=== PATIENT | male | born 1970 | race African-American/Black ===

== ENCOUNTER 2021-05-19 21:09 | Emergency (ER) | payer MEDICAID ==
[~2021-05-19] VITALS: Ht 175.3 cm; Wt 108.9 kg
[2021-05-19 21:14] VITALS: BP 142/103
[2021-05-19 22:53] LABS: Basophils # (auto) 0 10 ^3/uL (0-0.2); Basophils % (auto) 0.4 % (0.0-2.0); Eosinophils # (auto) 0.2 10 ^3/uL (0-0.8); Eosinophils % (auto) 1.3 % (0.0-7.0); Hematocrit 48.4 % (41.0-53.0); Hemoglobin 15.8 g/dL (13.5-17.5); Lymphocytes % (auto) 25.1 % (10.0-50.0); Mean Corpuscular Hgb Conc. 32.5 g/dL (32.0-36.0); Mean Corpuscular Volume 86.2 fL (80.0-100.0); Monocytes # (auto) 0.8 10 ^3/uL (0-1.3); Monocytes % (auto) 6.9 % (0.0-12.0); Neutrophils # (auto) 7.8 10 ^3/uL (1.6-8.6); Neutrophils % (auto) 66.3 % (37.0-80.0); Nucleated Red Blood Cells % 0.1 %; Red Blood Cells 5.62 10^6/uL (4.5-5.90); Red Cell Distribution Width 13.8 % (11.8-14.3); White Blood Cell 11.8 10^3/uL (4.4-10.8)
[2021-05-19 23:09] LABS: Albumin 3.9 g/dL (3.4-5.0); Calcium 9.8 mg/dL (8.5-10.1); Potassium 4.1 mmol/L (3.5-5.1)
[2021-05-19 23:12] LABS: BUN/Creatinine Ratio 8.2; Bilirubin, Total 0.5 mg/dL (0.2-1.0); Total Protein 8.2 g/dL (6.4-8.2)
== END 2021-05-20 02:00 | disposition home or self-care (01) ==
LOC: ER 21:09
DX: K59.00 Constipation, unspecified (principal)
CPT/HCPCS: 36415; 74176; 80053; 83690; 85025

== ENCOUNTER 2023-02-27 03:52 | Inpatient (IN) | payer MEDICAID ==
[~2023-02-27] VITALS: Ht 175.3 cm; Wt 106.4 kg
[2023-02-27 04:47] LABS: Basophils # (auto) 0.1 10 ^3/uL (0-0.2); Basophils % (auto) 0.5 % (0.0-2.0); Eosinophils # (auto) 0.1 10 ^3/uL (0-0.8); Eosinophils % (auto) 1.1 % (0.0-7.0); Hematocrit 44.8 % (41.0-53.0); Hemoglobin 14.8 g/dL (13.5-17.5); Lymphocytes # (auto) 2.7 10 ^3/uL (0.4-5.4); Lymphocytes % (auto) 24.2 % (10.0-50.0); Mean Corpuscular Hemoglobin 28.1 pg (28.0-32.0); Mean Corpuscular Hgb Conc. 32.9 g/dL (32.0-36.0); Mean Corpuscular Volume 85.4 fL (80.0-100.0); Monocytes # (auto) 0.8 10 ^3/uL (0-1.3); Neutrophils # (auto) 7.5 10 ^3/uL (1.6-8.6); Neutrophils % (auto) 67.2 % (37.0-80.0); Nucleated Red Blood Cells % 0.1 %; Red Blood Cells 5.25 10^6/uL (4.5-5.90); Red Cell Distribution Width 13.7 % (11.8-14.3); White Blood Cell 11.1 10^3/uL (4.4-10.8)
[2023-02-27 05:28] LABS: Albumin 3.8 g/dL (3.4-5.0); Calcium 9.5 mg/dL (8.5-10.1); Potassium 3.9 mmol/L (3.5-5.1)
[2023-02-27 05:37] LABS: BUN/Creatinine Ratio 7.2 (10.0-20.0)
[2023-02-27 05:38] LABS: Bilirubin, Total 0.2 mg/dL (0.2-1.0); Total Protein 7.3 g/dL (6.4-8.2)
[2023-02-27] MEDS ORDERED: SODIUM CHLORIDE 0.9% 1,000 ML IV ONE ×2 (06:00→10:30)
[2023-02-27] MEDS ORDERED: hydrALAZINE HCL 20 MG/ML VL IV PRN (10:30)
[2023-02-27] MEDS ORDERED: ACETAMINOPHEN 325 MG TAB PO PRN (10:30)
[2023-02-27] MEDS ORDERED: KETOROLAC TROMETH 30 MG/ML 1ML VIAL IV PRN (10:30)
[2023-02-27] MEDS ORDERED: KETOROLAC TROMETH 30 MG/ML 1ML VIAL IV ONE (10:30)
[2023-02-27] MEDS ORDERED: ONDANSETRON HCL 4 MG/2 ML VIAL IV PRN (10:30)
[2023-02-27] MEDS ORDERED: MORPHINE SULFATE INJ 2 MG/ml SYRG IV PRN (10:30)
[2023-02-27] MEDS ORDERED: HYDROcodone-ACET 5/325MG TAB PO PRN (10:30)
[2023-02-27] MEDS ORDERED: levoFLOXacin 250MG 50 ML IV ONE (10:45)
[2023-02-27] MEDS ORDERED: PANTOPRAZOLE 40 MG/10 ML VIAL INJ IV ONE (10:45)
[2023-02-27] MEDS ORDERED: metroNIDAZOLE 500MG/100ML 100 ML IV ONE (10:45)
[2023-02-27 11:47] LABS: Cholesterol 137 mg/dL (< 200); HDL Cholesterol 40 mg/dL (40-59); LDL Cholesterol 81 mg/dL (< 100); Triglycerides 150 mg/dL (< 150)
[2023-02-27] MEDS: SODIUM CHLORIDE 0.9% 1,000 ML IV SCH ×2 (13:04→14:57)
[2023-02-27] MEDS: metroNIDAZOLE 500MG/100ML 100 ML IV SCH (22:44)
[2023-02-28] VITALS (8 sets, daily range): BP systolic 135–146; BP diastolic 68–96
[2023-02-28] MEDS: SODIUM CHLORIDE 0.9% 1,000 ML IV SCH ×4 (03:10→20:50)
[2023-02-28] MEDS: metroNIDAZOLE 500MG/100ML 100 ML IV SCH (06:00)
[2023-02-28 06:48] LABS: Albumin 3.1 g/dL (3.4-5.0); Calcium 8.3 mg/dL (8.5-10.1); Potassium 4.1 mmol/L (3.5-5.1)
[2023-02-28 06:53] LABS: BUN/Creatinine Ratio 5.5 (10.0-20.0); Bilirubin, Total 0.5 mg/dL (0.2-1.0); Total Protein 6.3 g/dL (6.4-8.2)
[2023-02-28 06:54] LABS: Basophils # (auto) 0 10 ^3/uL (0-0.2); Basophils % (auto) 0.3 % (0.0-2.0); Eosinophils # (auto) 0.1 10 ^3/uL (0-0.8); Eosinophils % (auto) 1.6 % (0.0-7.0); Hematocrit 40.2 % (41.0-53.0); Hemoglobin 13.3 g/dL (13.5-17.5); Lymphocytes # (auto) 2.6 10 ^3/uL (0.4-5.4); Lymphocytes % (auto) 29.9 % (10.0-50.0); Mean Corpuscular Hemoglobin 28.1 pg (28.0-32.0); Mean Corpuscular Hgb Conc. 33.1 g/dL (32.0-36.0); Monocytes # (auto) 0.5 10 ^3/uL (0-1.3); Monocytes % (auto) 5.9 % (0.0-12.0); Neutrophils # (auto) 5.4 10 ^3/uL (1.6-8.6); Neutrophils % (auto) 62.3 % (37.0-80.0); Nucleated Red Blood Cells % 0.1 %; Red Blood Cells 4.73 10^6/uL (4.5-5.90); Red Cell Distribution Width 13.5 % (11.8-14.3); White Blood Cell 8.6 10^3/uL (4.4-10.8)
[2023-02-28] MEDS ORDERED: levoFLOXacin 500MG 100 ML IV SCH (10:00)
[2023-02-28] MEDS ORDERED: PANTOPRAZOLE 40 MG/10 ML VIAL INJ IV SCH (10:00)
[2023-02-28 13:35] LABS: Albumin 3.5 g/dL (3.4-5.0); Calcium 8.5 mg/dL (8.5-10.1); Potassium 4.5 mmol/L (3.5-5.1)
[2023-02-28 13:39] LABS: BUN/Creatinine Ratio 5.2 (10.0-20.0); Bilirubin, Total 0.4 mg/dL (0.2-1.0); Total Protein 6.5 g/dL (6.4-8.2)
[2023-03-01] MEDS: SODIUM CHLORIDE 0.9% 1,000 ML IV SCH (04:10)
[2023-03-01 05:00] VITALS: BP 121/90
[2023-03-01 06:08] LABS: Albumin 3.3 g/dL (3.4-5.0); Calcium 8.7 mg/dL (8.5-10.1); Magnesium 2.7 mg/dL (1.6-2.6); Potassium 4.2 mmol/L (3.5-5.1)
[2023-03-01 06:10] LABS: Bilirubin, Total 0.4 mg/dL (0.2-1.0); Total Protein 6.9 g/dL (6.4-8.2)
[2023-03-01 09:00] VITALS: BP 137/90
[2023-03-01 12:42] VITALS: BP 137/90
== END 2023-03-01 14:00 | disposition home or self-care (01) | DRG 282 ==
LOC: ER 03:52 → OVERFLOW 10:22 → WEST WING 23:27
PROVIDERS: ADMIT Nurse Practitioner Family; ATTEND Internal Medicine Geriatric Medicine
DX: K85.20 Alcohol induced acute pancreatitis without necrosis or infection (principal); E44.1 Mild protein-calorie malnutrition; E66.01 Morbid (severe) obesity due to excess calories; Z68.34 Body mass index [BMI] 34.0-34.9, adult; Z88.0 Allergy status to penicillin
CPT/HCPCS: 36415; 71045; 74176; 80053; 80061; 83036; 83690; 83735; 84443; 84484; 85025; 93005; 96361; 96374; 96375; C9113; G0378; J1885; J1956; J2405; J3490

== ENCOUNTER 2025-07-15 17:17 | Inpatient (IN) | payer MEDICAID ==
[~2025-07-15] VITALS: Ht 175.3 cm; Wt 109.5 kg
--- NOTE | 2025-07-15 17:49 | ED.PDOC ---
History of Present Illness HPI Comments Mr. Medina is a 54 year old male with PMHx of CVA in October with sequela of left sided weakness(patient is on anticoagulants but is unsure of which one), brain aneurysms s/p failed endovascular coiling, type 2 diabetes mellitus, hypertension, and hyperlipidemia,, who presents today with chief complaint of headache and generalized body aches. The patient states that he habitually has headaches, however in the last 3-4 days he these have increased in intensity. He describes his headaches as generalized, throbbing in nature, 10/10 intensity, associated with photophobia and phonophobia, improves slightly with appointment in bilateral temporal pressure and resting in a dark room. Additionally refers fatigue, febrile sensation, nasal congestion and discharge, nausea, bilateral jaw pain, and a transitory period of decreased vision in the left eye with spontaneous resolution. The patient also reports that he ran out of blood pressure medication 2-3 days ago. He denies chest pain, abdominal pain, vomiting, weakness, loss of consciousness, disorientation, and exposure to sick contacts. Due to persistence of symptoms, he presented to the ED for further evaluation. Chief Complaint: Headache Time Seen by MD: 18:20 Primary Care Provider: NONE Allergies: Coded Allergies: Penicillins (Verified Allergy, Unknown, 02/27/23) Home Meds No Active Prescriptions or Reported Meds Information Source: Patient Mode of Arrival: Ambulatory Severity: Moderate Timing: Days Duration: Since onset Past Medical History PAST MEDICAL HISTORY: CVA, DM, High Lipids, HTN, Denies Past Medical History (Other): Brain aneurysms Surgical History: Denies all surgeries Surgical History (Other): Failed endovascular coiling Family History Family History: Reviewed,noncontributory to illness Social History Smoker: Quit Greater Than 1 Year Alcohol: Denies ETOH Use Drugs: Denies Drug Use Lives In: Home Constitutional: reports: fatigue EENTM: reports: blurred vision (In left eye that spontaneous resolved ), mouth pain, nasal discharge, nose congestion, photophobia, others (Jaw pain, phonophobia ); denies: double vision, eye pain, throat pain Respiratory: denies: cough, orthopnea, shortness of breath Cardiovascular: denies: chest pain, dizzy spells, lightheadedness, palpitations, syncope Gastrointestinal: reports: nausea; denies: abdominal pain, constipated, dysphagia, poor appetite, poor fluid intake, vomiting Genitourinary: denies: burning, dysuria, flank pain, frequency, hematuria, incontinence, pain Neurological: reports: headache, left sided numbness (From previous stroke ), left sided weakness (From previous storke ), pre-existing deficit (From previous stroke ); denies: dizziness, fainting, numbness, paresthesia, right sided numbness, right sided weakness, seizure, tingling, tremors, weakness Musculoskeletal: reports: joint pain, neck pain; denies: back pain, joint swelling, muscle pain, muscle stiffness, others Integumetry: denies: laceration, lesions, rash, wounds Physical Exam General Appearance: Normal, Obese HEENT: Normal ENT Inspection, PERRL/EOMI, Pharynx Normal Neck: Full Range of Motion, Non-Tender, Normal Inspection Respiratory: Chest Non-Tender, No Accessory Muscle Use, No Respiratory Distress, Normal Breath Sounds Cardiovascular: No Edema, No Murmur, Normal Peripheral Pulses, Regular Rate/Rhythm Breast Exam: Deferred Gastrointestinal: No Organomegaly, Non Tender, Normal Bowel Sounds, Soft Pelvic: Deferred Rectal: Deferred Extremities: Normal capillary refill, Normal inspection, Normal range of motion, Non-tender, No pedal edema Neurologic: Abnormal Gait (Due to previous stroke ), Alert, Motor Weakness (3/5 strength of left hand, 2/5 strength of left leg), Normal Affect, Normal Mood Cerebellar Function: NOT DONE Reflexes: NOT DONE Skin: Normal Color Lymphatic: Cervical Adenopathy (L) (No cervical adenopathy), Cervical Adenopathy (R) (No cervical adenopathy) Was a procedure done? Was a procedure done?: No EKG EKG : Pulse Rate (adult): 77 [place]: LAD ST: Nonsp Differential Dx Considerations may include: Complex migraines, CVA, aneurysmal rupture, Hypertensive Urgency, Hypertensive Emergency, Giant Cell Arteritis, Viral Syndrome X-Ray, Labs, Meds, VS Vital Signs Date Time Temp Pulse Resp B/P (MAP) Pulse Ox O2 Delivery O2 Flow Rate FiO2 07/15/25 21:53 97.4 81 18 115/72 (86) 96 97.4 07/15/25 21:33 83 16 128/79 (95) 96 07/15/25 19:37 84 120/84 07/15/25 19:32 84 18 97 Room Air* 0 21 07/15/25 19:30 98.3 84 18 120/84 (96) 95 98.3 07/15/25 19:26 77 07/15/25 17:35 77 07/15/25 17:20 97.0 86 18 147/103 98 97.0 Lab Test 07/15/25 20:04 07/15/25 19:45 07/15/25 19:00 07/15/25 17:53 Range/Units POC Glucose 285 H 70-106 mg/dl Urine Color Light-yellow Yellow Urine Clarity Clear Clear Urine pH 5.5 5.0-9.0 Urine Specific [place] 1.038 H 1.001-1.035 Urine Protein Trace H Negative Urine Ketones Negative Negative Urine Blood Trace H Negative /uL Urine Nitrite Negative Negative Urine Bilirubin Negative Negative Urine Urobilinogen Normal Negative mg/dL Urine Leukocyte Esterase Negative Negative /uL Urine RBC 3 0 - 3 /hpf Urine Microscopic WBC < 1 0-3 /HPF Urine Squamous Epithelial Cells Few <5 /hpf Urine Bacteria None seen None Seen /hpf Urine Mucus Few None Seen Urine Glucose 4+ H Normal mg/dL Troponin I High Sensitivity < 3 L < 3 L </=54 ng/L White Blood Count 8.9 4.4-10.8 10^3/uL Red Blood Count 5.31 4.5-5.90 10^6/uL Hemoglobin 14.6 13.5-17.5 g/dL Hematocrit 44.6 41.0-53.0 % Mean Corpuscular Volume 83.9 80.0-100.0 fL Mean Corpuscular Hemoglobin 27.4 L 28.0-32.0 pg Mean Corpuscular Hemoglobin Concent 32.7 32.0-36.0 g/dL Red Cell Distribution Width 13.7 11.8-14.3 % Platelet Count 245 140-450 10^3/uL Mean Platelet Volume 7.4 6.9-10.8 fL Neutrophils (%) (Auto) 59.2 37.0-80.0 % Lymphocytes (%) (Auto) 31.0 10.0-50.0 % Monocytes (%) (Auto) 6.2 0.0-12.0 % Eosinophils (%) (Auto) 2.8 0.0-7.0 % Basophils (%) (Auto) 0.8 0.0-2.0 % Neutrophils # (Auto) 5.3 1.6-8.6 10 ^3/uL Lymphocytes # (Auto) 2.7 0.4-5.4 10 ^3/uL Monocytes # (Auto) 0.6 0-1.3 10 ^3/uL Eosinophils # (Auto) 0.2 0-0.8 10 ^3/uL Basophils # (Auto) 0.1 0-0.2 10 ^3/uL Nucleated Red Blood Cells 0.0 % Erythrocyte Sedimentation Rate 12 0-20 mm/hr Prothrombin Time 9.8 9.3-11.8 sec Prothrombin Time INR 0.92 0.9-1.15 Activated Partial Thromboplast Time 25.8 24.5-34.5 SEC Sodium Level 137 136-145 mmol/L Potassium Level 4.0 3.5-5.1 mmol/L Chloride Level 102 98-107 mmol/L Carbon Dioxide Level 28 20-31 mmol/L Anion Gap 7 5-15 Blood Urea Nitrogen 7 L 9-23 mg/dL Creatinine 1.31 H 0.700-1.30 mg/dL Glomerular Filtration Rate Calc 65 >90 mL/min BUN/Creatinine Ratio 5.3 L 10.0-20.0 Serum Glucose 343 H 74-106 mg/dL Lactic Acid Level 1.5 0.4-2.0 mmol/L Calcium Level 10.2 8.7-10.4 mg/dL Magnesium Level 2.1 1.6-2.6 mg/dL Total Bilirubin 0.5 0.2-1.0 mg/dL Aspartate Amino Transferase (AST) 12 L 13-40 U/L Alanine Aminotransferase (ALT) 18 7-40 U/L Alkaline Phosphatase 126 H 46-116 U/L B-Type Natriuretic Peptide 11.23 0-100 pg/mL Total Protein 8.0 5.7-8.2 g/dL Albumin 4.8 3.2-4.8 g/dL Beta-Hydroxybutyric Acid 0.102 < 0.4 mmol/L Test 07/15/25 17:45 Range/Units Influenza Type A Antigen Negative Negative Influenza Type B Antigen Negative Negative SARS-CoV-2 Antigen (Rapid) Negative NEGATIVE Current Medications Medications (Trade) Dose Ordered Sig/Ruy Route Start Time Stop Time Status Last Admin Acetaminophen/ Hydrocodone Bitart ([place] 5/325MG Tab) 1 tab ONCE ONCE PO 07/15/25 18:45 07/15/25 19:55 DC 07/15/25 21:[address] [address] Ph: [phone] DIAGNOSTIC IMAGING Diagnostic Imaging Report : [id number] Signed PATIENT: PHYLICIA MEDINA V ACCT: [id number] UNIT: [id number] : 1970 LOC: ER ROOM / BED: / AGE / SEX: 54 / M ADM STATUS: REG ER SERVICE 182 ORDERING PHYSICIAN: LA RIDDLE DO PROCEDURE(s): [place] - ANGIO HEAD/Neck REASON: WILK[place], h/o aneurysm ORDER NUMBER(s): [id number], ACCESSION NUMBER(s): [id number] INDICATION: WILKERSON, h/o aneurysm COMPARISON: CT HEAD WITHOUT CONTRAST on DOS: 07/15/25 TECHNIQUE: CTA head without and with intravenous contrast. CTA neck with intravenous contrast. 3D image postprocessing was performed on a dedicated workstation and images were used for interpretation and reporting. Radiation Dose Information: CT Dose: CTDI volume is 22.09 mGy. Dose-length product is 3.16 mGy*cm FINDINGS: The caliber and course of the distal internal carotid arteries is unremarkable. No evidence of high-grade stenosis or occlusion of the proximal branch vessels of the [place]. The basilar artery is patent. The intracranial segments of the bilateral vertebral arteries are unremarkable in caliber. There is a suspected 3 mm aneurysm of the left M1/M2 bifurcation. The visualized thoracic aortic arch and proximal great vessels are unremarkable. The left common, internal and external carotid arteries are within normal limits. The right common, internal and external carotid arteries are within normal limits. The cervical segments of the right and left vertebral arteries are within normal limits. The limited visualized lung apices are clear. The surrounding soft tissues and osseous structures are otherwise unremarkable. Pleural-parenchymal scarring and nonspecific opacities are seen at the lung apices. IMPRESSION: 1. Suspected 3 mm aneurysm of the left M1/M2 bifurcation. Comparison with prior imaging is suggested. 2. No large vessel occlusion. All CT scans at this medical facility are performed using dose modulation techniques as appropriate to a performed exam including the following: Automated exposure control was utilized; adjustment of the MA and/or KV according to patient size; and use of iterative reconstruction technique. ATED BY: SALMA FORBES MD DICTATED DATE/TIME: 07/15/252054 SIGNED BY: SALMA FORBES MD SIGNED DATE/TIME: 07/15/252054 CC: [place] [id number] Ph: [phone] DIAGNOSTIC IMAGING Diagnostic Imaging Report : [id number] Signed PATIENT: PHYLICIA MEDINA V ACCT: [id number] UNIT: [id number] : 1970 LOC: ER ROOM / BED: / AGE / SEX: 54 / M ADM STATUS: REG ER SERVICE 182 ORDERING PHYSICIAN: LA RIDDLE DO PROCEDURE(s): CXRP - CHEST PORTABLE REASON: flu like symptoms ORDER NUMBER(s): [id number], ACCESSION NUMBER(s): [id number] CLINICAL HISTORY: flu like symptoms TECHNIQUE: Single view of the chest was obtained. COMPARISON: XY CHEST PORTABLE on DOS: 02/27/23 FINDINGS: The heart size and pulmonary vasculature are normal. The lungs are clear. IMPRESSION: NO ACUTE CARDIOPULMONARY PROCESS. ATED BY: ORLANDO SOUZA MD DICTATED DATE/TIME: 07/15/252040 SIGNED BY: ORLANDO OSUZA MD SIGNED DATE/TIME: 07/15/252040 CC: [place] [id number] Ph: [phone] DIAGNOSTIC IMAGING Diagnostic Imaging Report : [id number] Signed PATIENT: PHYLICIA MEDINA V ACCT: [id number] UNIT: [id number] : 1970 LOC: ER ROOM / BED: / AGE / SEX: 54 / M ADM STATUS: REG ER SERVICE [id number] ORDERING PHYSICIAN: CONNIE YAO PROCEDURE(s): HWOCT - HEAD WITHOUT CONTRAST REASON: headache ORDER NUMBER(s): [id number], ACCESSION NUMBER(s): [id number] CLINICAL HISTORY: headache TECHNIQUE: Helical scanning was performed of the head from the skull base to the vertex. Multiplanar reconstructions were performed. This exam was performed according to our departmental dose optimization program. Up-to-date CT equipment and radiation dose reduction techniques are utilized as appropriate. CTDI 5 DLP 45 COMPARISON: None FINDINGS: There is no evidence for acute intracranial hemorrhage, acute ischemic changes, mass, mass effect, or extra-axial fluid collection. There is no hydrocephalus or midline shift. There is no effacement of the cerebral sulci and basal subarachnoid cisterns. The cadena-white matter differentiation is well maintained. There are old right putamen and caudate lacunar infarcts. The imaged paranasal sinuses are clear. IMPRESSION: No acute intracranial abnormality seen. Old right basal ganglia lacunar infarcts. ATED BY: ORLANDO SOUZA MD DICTATED DATE/TIME: 07/15/251819 SIGNED BY: ORLANDO SOUZA MD SIGNED DATE/TIME: 07/15/251819 CC: Time of 1ST Reevaluation: 19:00 Reevaluation 1ST: Unchanged Time of 2ND Reevaluation: 22:03 (The case was discussed with the neurology on- call team (HPI, physical exam, labs and diagnostic tests that were available at the time of disposition, ED course, treatment plan) on the phone. They agreed to follow up with the patient in consult. No further recommendations. Dr. Ha. ) Patient Education/Counseling: Diagnosis, Treatment Family Education/Counseling: No Family Present Comments The patient presented today due to exacerbation of headaches and generalized body aches for the last 3-4 days On evaluation, the patient seemed well, vitals were stable with exception of BP of 140/103 mmHg, physical exam positive for left-sided deficits secondary to CVA in October 2023 CBC and ESR within normal range, CMP signficant for elevated creatinine 1.31, hyperglycemia, and elevated ALP. Coagulation profile without alterations. EKG shows sinus rhtyhm, borderline left axis deviation, and nonspecific T abnormalities in inferior leads Head CT without contrast shows no acute abnormality, with old right basal ganglia infarct noted SEPSIS Sepsis Screen Date sepsis recognized/suspect: Jul 15, 2025 Time Sepsis recognized/suspect: 1719 Recent Procedure: No On Antibiotic Therapy: No Respiratory Rate >20: No Heart Rate >90: No Temp<36 C (96.8 F) or >38.3 C: No SBP <90 or MAP <65 mmHG: No New Acute Mental Status Change: No Is the patient on CPAP, BIPAP,: No Physician Orders Head Without Contrast (07/15/25 17:31) V Belt Finisher (07/15/25 ) Stroke Assessment (07/15/25 18:21) Vital Signs .PER UNIT PROTOCOL (07/15/25 18:21) V Belt Finisher (07/15/25 18:21) Accurate Weight In Kg (07/15/25 18:21) Accucheck (07/15/25 18:21) Angio Head/Neck (07/15/25 18:21) 2 Large Bore Ivs (20mg Or Larg (07/15/25 18:21) Nursing Dysphagia Screen (07/15/25 18:21) Neuro Checks Per Unit Protocol (07/15/25 18:21) Chest Portable (07/15/25 18:21) Labetalol Hcl (Labetalol Hcl) (07/15/25 18:30) * Neurology Consult (07/15/25 21:32) Vital Signs Date Time Temp Pulse Resp B/P (MAP) Pulse Ox O2 Delivery O2 Flow Rate FiO2 07/15/25 21:53 97.4 81 18 115/72 (86) 96 97.4 07/15/25 21:33 83 16 128/79 (95) 96 07/15/25 19:37 84 120/84 07/15/25 19:32 84 18 97 Room Air* 0 21 07/15/25 19:30 98.3 84 18 120/84 (96) 95 98.3 07/15/25 19:26 77 07/15/25 17:35 77 07/15/25 17:20 97.0 86 18 147/103 98 97.0 Laboratory Tests Test 07/15/25 17:53 Lactic Acid Level 1.5 mmol/L (0.4-2.0) White Blood Count 8.9 10^3/uL (4.4-10.8) Medications Medications Dose Ordered Sig/Ruy Route Start Time Stop Time Status Last Admin Dose Admin Acetaminophen/ Hydrocodone Bitart 1 tab ONCE ONCE PO 07/15/25 18:45 07/15/25 19:55 DC 07/15/25 21:31 Departure 1 Departure Time of Disposition: 21:31 Impression: Primary Impression: Headache Disposition: 09 ADMITTED INPATIENT Admit to: Tele Condition: Guarded e-Prescriptions No Active Prescriptions or Reported Meds Discharged With: Self Critical Care Note Critical Care Time?: No Stability Stability form required: No I personally scribed for VICTORIANO SARGENT RESIDENT ([email or web address]) on 07/15/25 at 21:07. Electronically submitted by Irvin Levin ([email or web address]). VICTORIANO SARGENT Jul 15, 2025 17:49 LA RIDDLE DO Jul 15, 2025 21:32
[2025-07-15 18:20] LABS: Hematocrit 44.6 % (41.0-53.0); Hemoglobin 14.6 g/dL (13.5-17.5); Mean Corpuscular Hemoglobin 27.4 pg (28.0-32.0); Mean Corpuscular Volume 83.9 fL (80.0-100.0); Nucleated Red Blood Cells % 0.0 %
--- NOTE | 2025-07-15 18:23 | DVH ---
CLINICAL HISTORY: headache TECHNIQUE: Helical scanning was performed of the head from the skull base to the vertex. Multiplanar reconstructions were performed. This exam was performed according to our departmental dose optimizat ion program. Up-to-date CT equipment and radiation dose reduction techniques are utilized as appropri ate. CTDI 5 DLP 45 COMPARISON: None FINDINGS: There is no evidence for acute intracranial hemorrhage, acute ischemic changes, mass, mass effect, or extra-axial fluid collection. There is no hydrocephalus or midline shift. There is no effacement of the cerebral sulci and basal subarachnoid cisterns. The cadena-white matter differentiation is well yue ntained. There are old right putamen and caudate lacunar infarcts. The imaged paranasal sinuses are clear. IMPRESSION: No acute intracranial abnormality seen. Old right basal ganglia lacunar infarcts.
[2025-07-15 18:35] LABS: Alanine Aminotransferase 18 U/L (7-40); Anion Gap 7 (5-15); BUN/Creatinine Ratio 5.3 (10.0-20.0); Calcium 10.2 mg/dL (8.7-10.4); Carbon Dioxide 28 mmol/L (20-31); Chloride 102 mmol/L (98-107); Magnesium 2.1 mg/dL (1.6-2.6); Potassium 4.0 mmol/L (3.5-5.1); Sodium 137 mmol/L (136-145); Total Protein 8.0 g/dL (5.7-8.2)
[2025-07-15 18:36] LABS: Albumin 4.8 g/dL (3.2-4.8); Alkaline Phosphatase 126 U/L (46-116); Bilirubin, Total 0.5 mg/dL (0.2-1.0); Blood Urea Nitrogen 7 mg/dL (9-23); Glucose 343 mg/dL (74-106)
--- NOTE | 2025-07-15 18:40 | ECG ---
[facility] Test Date: 2025-07-15 Test Time: 17:35:21 Pat Name: PHYLICIA DELEON Department: Room: 0251 Gender: M Hat Liner: WOOD : 1970 Requested By: LA RIDDLE Order Number: [id number] Reading MD: Missael Brown Measurements Intervals [place] Rate: 77 P: 44 MI: 169 QRS: -28 QRSD: 96 T: -22 QT: 337 QTc: 382 Interpretive Statements Sinus rhythm Borderline left axis deviation Nonspecific T abnormalities, inferior leads Baseline wander in lead(s) III,aVF Electronically Signed On 07-19-2025 14:52:30 PDT by Missael Brown Please click the below link to view image of tracing.
[2025-07-15 18:54] LABS: INR 0.92 (0.9-1.15); Partial Thromboplastin Time 25.8 SEC (24.5-34.5); Prothrombin Time 9.8 sec (9.3-11.8)
[2025-07-15 19:32] VITALS: PULSE 84; RESP 18; O2SAT 97
[2025-07-15] MEDS: LABETALOL HCL 20 MG/4 ML VL IV PRN (19:37)
[2025-07-15] MEDS: IOHEXOL 350 MG/ML 100ML IJ ONE (20:20)
[2025-07-15 20:41] LABS: COVID19 ANTIGEN SOFIA FIA NEGATIVE (NEGATIVE)
[2025-07-15 20:44] LABS: Urine Protein, UAD TRACE (Negative)
--- NOTE | 2025-07-15 20:44 | DVH ---
CLINICAL HISTORY: flu like symptoms TECHNIQUE: Single view of the chest was obtained. COMPARISON: XY CHEST PORTABLE on DOS: 02/27/23 FINDINGS: The heart size and pulmonary vasculature are normal. The lungs are clear. IMPRESSION: NO ACUTE CARDIOPULMONARY PROCESS.
--- NOTE | 2025-07-15 20:57 | DVH ---
INDICATION: WILKERSON, h/o aneurysm COMPARISON: CT HEAD WITHOUT CONTRAST on DOS: 07/15/25 TECHNIQUE: CTA head without and with intravenous contrast. CTA neck with intravenous contrast. 3D image postprocessing was performed on a dedicated workstation and images were used for interpretation and reporting. Radiation Dose Information: CT Dose: CTDI volume is 22.09 mGy. Dose-length product is 3.16 mGy*cm FINDINGS: The caliber and course of the distal internal carotid arteries is unremarkable. No evidence of high-g rade stenosis or occlusion of the proximal branch vessels of the [place] of [place]r. The basilar artery is patent. The intracranial segments of the bilateral vertebral arteries are unremarkable in caliber . There is a suspected 3 mm aneurysm of the left M1/M2 bifurcation. The visualized thoracic aortic arch and proximal great vessels are unremarkable. The left common, int ernal and external carotid arteries are within normal limits. The right common, internal and external carotid arteries are within normal limits. The cervical segments of the right and left vertebral art eries are within normal limits. The limited visualized lung apices are clear. The surrounding soft ti ssues and osseous structures are otherwise unremarkable. Pleural-parenchymal scarring and nonspecific opacities are seen at the lung apices. IMPRESSION: 1. Suspected 3 mm aneurysm of the left M1/M2 bifurcation. Comparison with prior imaging is suggested . 2. No large vessel occlusion. All CT scans at this medical facility are performed using dose modulation techniques as appropriate t o a performed exam including the following: Automated exposure control was utilized; adjustment of th e MA and/or KV according to patient size; and use of iterative reconstruction technique.
[2025-07-15] MEDS: HYDROcodone-ACET 5/325MG TAB PO ONE (21:31)
[2025-07-16] VITALS (8 sets, daily range): BP systolic 112–130; BP diastolic 61–89; PULSE 63–92; RESP 16–20; TEMP 97.6–98.5; O2SAT 94–98
[2025-07-16] MEDS ORDERED: ACETAMINOPHEN 325 MG TAB PO PRN (00:30)
[2025-07-16] MEDS ORDERED: DEXTROSE (50%) 50ML SYRG IV PRN (00:30)
[2025-07-16] MEDS ORDERED: ONDANSETRON HCL 4 MG/2 ML VIAL IV PRN (00:30)
--- NOTE | 2025-07-16 02:00 | DVHHPRES ---
History of Present Illness Resident Creating Document: DEIDRA MARTIN RESIDENT History of Present Illness This is a 54 year old male with PMHx of CVA (October) with sequela of left sided weakness(takes aspirin and an anticoagulants but is unsure of which one), brain aneurysms s/p failed endovascular coiling, type 2 diabetes mellitus on insulin, hypertension, hyperlipidemia, and pancreatitis, has come to the ER today with chief complaint of headache and generalized body aches. The patient states that he habitually has headaches, however in the last 3-4 days, it has increased in intensity. He describes his headaches as generalized , starting from the occipital region that radiates towards the front and down to his jaws, throbbing in nature, 10/10 intensity, associated with photophobia and phonophobia, improves slightly when he applies pressure in the temporal region and rests in a dark room. He also states that he has been fatigued, and has nasal congestion and discharge, nausea and a transitory period of decreased vision in the left eye on waking up with spontaneous resolution after 15 minutes. He states that this has been ongoing since his stroke event. The patient also reports that he ran out of blood pressure medication 2-3 days ago. He denies chest pain, abdominal pain, vomiting, weakness, loss of consciousness, disorientation, and exposure to sick contacts. Blood pressure on admission was 147/103, pulse 86, respiratory rate 18, temperature 97.0. Angio of the head and neck showed suspected 3 mm aneurysm of the left M1 / M2 bifurcation. CT scan of the head shows old right basilar ganglia lacunar infarct. We are admitting the patient for further evaluation and management. past medical history: As stated above past surgical history: None social history: Patient denies smoking, drinking alcohol, or taking any other illicit drugs family history: Reviewed and noncontributory to the management of this case home medication: Patient can not remember medications but knows he takes insulin for diabetes allergies: None code status: Full code Review of Systems Constitutional: Yes: Other (headache); No: Fever, Chills, Sweats, Weakness, Malaise Eyes: No: Pain, Vision change, Conjunctivae inflammation, Eyelid inflammation, Other, Redness ENT: Nose discharge, Nose congestion; No: Ear pain, Ear discharge, Nose pain, Mouth pain, Mouth swelling, Throat pain, Throat swelling, Other Respiratory: No: Cough, Dry, Shortness of breath, SOB with excertion, Wheezing, Hemoptysis, Pleuritic Pain, Sputum, Wheezing, Other Cardiovascular: No: Chest Pain, Palpitations, Orthopnea, Paroxysmal Noc. Dyspnea, Edema, Lt Headedness, Other Gastrointestinal: Nausea; No: Vomiting, Abdominal Pain, Diarrhea, Constipation, Melena, Hematochezia, Other Genitourinary: No Dysuria, No Frequency, No Incontinence, No Hematuria, No Retention, No Other Musculoskeletal: No: other, neck pain, shoulder pain, arm pain, back pain, hand pain, leg pain, foot pain Skin: No: Rash, Lesions, Jaundice, Bruising, Other Neurological: No: Weakness, Numbness, Incoordination, Change in speech, Confusion, Seizures, Other Allergies: Coded Allergies: Penicillins (Verified Allergy, Unknown, 02/27/23) Medications Current Medications Medications Dose Ordered Sig/Ruy Route Start Time Stop Time Status Last Admin Dose Admin Labetalol HCl 5 mg Q2HPRN PRN IV 07/15/25 18:30 Ondansetron HCl 4 mg Q4HP PRN IV 07/16/25 00:30 Acetaminophen 650 mg Q6HP PRN PO 07/16/25 00:30 Diagnostic Test (Pha) 1 strip ACHS 07/16/25 07:00 Insulin Human Regular AC SC 07/16/25 07:00 Dextrose 50 ml UD PRN IV 07/16/25 00:30 Insulin Glargine 15 units HS SC 07/16/25 22:00 Fluticasone Propionate 50 mcg Q12HR EACHNOSTRI 07/16/25 10:00 Amlodipine Besylate 5 mg DAILY PO 07/16/25 10:00 Aspirin 81 mg DAILY PO 07/17/25 10:00 Atorvastatin Calcium 40 mg HS PO 07/16/25 22:00 Exam Vital Signs Vital Signs Date Time Temp Pulse Resp B/P (MAP) Pulse Ox O2 Delivery O2 Flow Rate FiO2 07/16/25 00:49 97.6 67 16 124/86 (99) 98 97.6 07/15/25 19:32 Room Air* 0 21 Exam General Appearance: Alert, Oriented X3, Cooperative, Not in acute distress HEENT: Atraumatic, Mucous membranes moist/pink, tender on palpation of frontal nasal sinuses Respiratory: Clear to auscultation, Normal air movement, No added sounds Cardiovascular: Regular rate, Normal S1, Normal S2, No murmurs Abdominal: Active bowel sounds, Soft, no distention, no tenderness Extremities: No edema, Normal pulses, power 0/5 on the left lower and upper extremity-patient uses cane to ambulate Skin: No Significant rash, except past surgical scars Neuro: Normal speech, sensorimotor deficits none Psych/Mental Status: Mental status NL, Mood NL Nurse was there as forest fire control officer during examination Labs/Xrays Labs Test 07/15/25 20:04 07/15/25 19:45 07/15/25 19:00 07/15/25 17:53 Range/Units POC Glucose 285 H 70-106 mg/dl Urine Color Light-yellow Yellow Urine Clarity Clear Clear Urine pH 5.5 5.0-9.0 Urine Specific Blain 1.038 H 1.001-1.035 Urine Protein Trace H Negative Urine Ketones Negative Negative Urine Blood Trace H Negative /uL Urine Nitrite Negative Negative Urine Bilirubin Negative Negative Urine Urobilinogen Normal Negative mg/dL Urine Leukocyte Esterase Negative Negative /uL Urine RBC 3 0 - 3 /hpf Urine Microscopic WBC < 1 0-3 /HPF Urine Squamous Epithelial Cells Few <5 /hpf Urine Bacteria None seen None Seen /hpf Urine Mucus Few None Seen Urine Glucose 4+ H Normal mg/dL Troponin I High Sensitivity < 3 L </=54 ng/L White Blood Count 8.9 4.4-10.8 10^3/uL Red Blood Count 5.31 4.5-5.90 10^6/uL Hemoglobin 14.6 13.5-17.5 g/dL Hematocrit 44.6 41.0-53.0 % Mean Corpuscular Volume 83.9 80.0-100.0 fL Mean Corpuscular Hemoglobin 27.4 L 28.0-32.0 pg Mean Corpuscular Hemoglobin Concent 32.7 32.0-36.0 g/dL Red Cell Distribution Width 13.7 11.8-14.3 % Platelet Count 245 140-450 10^3/uL Mean Platelet Volume 7.4 6.9-10.8 fL Neutrophils (%) (Auto) 59.2 37.0-80.0 % Lymphocytes (%) (Auto) 31.0 10.0-50.0 % Monocytes (%) (Auto) 6.2 0.0-12.0 % Eosinophils (%) (Auto) 2.8 0.0-7.0 % Basophils (%) (Auto) 0.8 0.0-2.0 % Neutrophils # (Auto) 5.3 1.6-8.6 10 ^3/uL Lymphocytes # (Auto) 2.7 0.4-5.4 10 ^3/uL Monocytes # (Auto) 0.6 0-1.3 10 ^3/uL Eosinophils # (Auto) 0.2 0-0.8 10 ^3/uL Basophils # (Auto) 0.1 0-0.2 10 ^3/uL Nucleated Red Blood Cells 0.0 % Erythrocyte Sedimentation Rate 12 0-20 mm/hr Prothrombin Time 9.8 9.3-11.8 sec Prothrombin Time INR 0.92 0.9-1.15 Activated Partial Thromboplast Time 25.8 24.5-34.5 SEC Sodium Level 137 136-145 mmol/L Potassium Level 4.0 3.5-5.1 mmol/L Chloride Level 102 98-107 mmol/L Carbon Dioxide Level 28 20-31 mmol/L Anion Gap 7 5-15 Blood Urea Nitrogen 7 L 9-23 mg/dL Creatinine 1.31 H 0.700-1.30 mg/dL Glomerular Filtration Rate Calc 65 >90 mL/min BUN/Creatinine Ratio 5.3 L 10.0-20.0 Serum Glucose 343 H 74-106 mg/dL Lactic Acid Level 1.5 0.4-2.0 mmol/L Calcium Level 10.2 8.7-10.4 mg/dL Magnesium Level 2.1 1.6-2.6 mg/dL Total Bilirubin 0.5 0.2-1.0 mg/dL Aspartate Amino Transferase (AST) 12 L 13-40 U/L Alanine Aminotransferase (ALT) 18 7-40 U/L Alkaline Phosphatase 126 H 46-116 U/L B-Type Natriuretic Peptide 11.23 0-100 pg/mL Total Protein 8.0 5.7-8.2 g/dL Albumin 4.8 3.2-4.8 g/dL Beta-Hydroxybutyric Acid 0.102 < 0.4 mmol/L Test 07/15/25 17:45 Range/Units Influenza Type A Antigen Negative Negative Influenza Type B Antigen Negative Negative SARS-CoV-2 Antigen (Rapid) Negative NEGATIVE SEPSIS Sepsis Screen Date sepsis recognized/suspect: Jul 15, 2025 Time Sepsis recognized/suspect: 2132 Recent Procedure: No On Antibiotic Therapy: No Respiratory Rate >20: No Heart Rate >90: No Temp<36 C (96.8 F) or >38.3 C: No SBP <90 or MAP <65 mmHG: No New Acute Mental Status Change: No Is the patient on CPAP, BIPAP,: No Physician Orders Stroke Assessment (07/15/25 18:21) Vital Signs .PER UNIT PROTOCOL (07/15/25 18:21) Proctologist (07/15/25 18:21) Accurate Weight In Kg (07/15/25 18:21) Accucheck (07/15/25 18:21) Angio Head/Neck (07/15/25 18:21) 2 Large Bore Ivs (20mg Or Larg (07/15/25 18:21) Nursing Dysphagia Screen (07/15/25 18:21) Neuro Checks Per Unit Protocol (07/15/25 18:21) Chest Portable (07/15/25 18:21) Labetalol Hcl (Labetalol Hcl) (07/15/25 18:30) * Neurology Consult (07/15/25 21:32) Admit (07/16/25 00:28) Code Status (07/16/25 00:28) Ondansetron Hcl (Zofran) (07/16/25 00:30) Complete Blood Count (07/16/25 04:00) Comprehensive Metabolic Panel (07/16/25 04:00) Cardiac Diet-2gna,Lofat,Lochol (07/16/25 Breakfast) Condition: Unstable (07/16/25 00:28) Acetaminophen Tablet (Tylenol Tablet) (07/16/25 00:30) Stat Ekg For Chest Pain (07/16/25 00:28) Notify Md Of Changes From Base (07/16/25 00:28) Glucose Blood (Accu-Chek Comfort Curve T (07/16/25 07:00) Insulin R (Human) (Insulin R) (07/16/25 07:00) Dextrose 50% Syringe (07/16/25 00:30) Sodium Chloride 0.9% (07/16/25 00:30) Insulin Lantus (Glargine) (Lantus) (07/16/25 22:00) Drug Screen (07/16/25 00:28) Fluticasone Nasal [place] (Flonase [place]) (07/16/25 10:00) Amlodipine Tablet (Norvasc Tablet) (07/16/25 10:00) Atorvastatin (Lipitor) (07/16/25 22:00) Aspirin Tablet (07/17/25 10:00) Vital Signs Date Time Temp Pulse Resp B/P (MAP) Pulse Ox O2 Delivery O2 Flow Rate FiO2 07/16/25 00:49 97.6 67 16 124/86 (99) 98 97.6 07/15/25 21:53 97.4 81 18 115/72 (86) 96 97.4 07/15/25 21:33 83 16 128/79 (95) 96 07/15/25 19:37 84 120/84 07/15/25 19:32 84 18 97 Room Air* 0 21 07/15/25 19:30 98.3 84 18 120/84 (96) 95 98.3 07/15/25 19:26 77 Laboratory Tests Test 07/15/25 17:53 Lactic Acid Level 1.5 mmol/L (0.4-2.0) White Blood Count 8.9 10^3/uL (4.4-10.8) Medications Medications Dose Ordered Sig/Ruy Route Start Time Stop Time Status Last Admin Dose Admin Acetaminophen/ Hydrocodone Bitart 1 tab ONCE ONCE PO 07/15/25 18:45 07/15/25 19:55 DC 07/15/25 21:31 1 TAB Assessment/Plan Assessment/Plan #Brain aneurysm #History of stroke, left-sided weakness #hypertension #hyperlipidemia #Migraine -CT scan of head: No acute intracranial abnormality seen; Old right basal ganglia lacunar infarcts. -angio of the head and neck shows Suspected 3 mm aneurysm of the left M1/M2 bif urcation. Comparison with prior imaging is suggested; No large vessel occlusion. - neurology consult placed - aspirin 81 mg daily - atorvastatin 40 mg daily HS - labetalol 5 mg IV Q 2 PRN if SBP>150 - amlodipine 5 mg p.o. daily - Zofran 4 mg IV q.4 PRN - acetaminophen 650 mg p.o. q.6 PRN -lipid profile pending # Possible acute sinusitis - Flonase 50 mcg each nostril daily # Type 2 diabetes mellitus - A1c, pending - insulin Lantus 15 units HS - Moderate sliding scale insulin - Accu-Cheks # MARY due to VMN - IV fluid 125 mL/ hour once - avoid any nephrotoxic agents # Morbid obesity, BMI 34.7 - patient was counseled regarding lifestyle modification, need of exercise, healthy diet and weight loss over 8 minutes Diet: cardiac and diabetic diet Goals of care discussed with the patient for more than 27 minutes: Full code status Case discussed with Dr. Gomez, and patient Plan discussed with: Patient My Orders Orders - DEIDRA MARTIN RESIDENT Procedure Category Date Status Time Admit ADMIT 07/16/25 Transmitted 00:28 Code Status CODE 07/16/25 Transmitted 00:28 Ondansetron Hcl PHA 07/16/25 In Process (Zofran) 00:30 Complete Blood Count LAB 07/16/25 Logged 04:00 Comprehensive LAB 07/16/25 Logged Metabolic Panel 04:00 Cardiac DIET 07/16/25 Transmitted Diet-2gna,Lofat,Lochol Breakfast Condition: Unstable VIN 07/16/25 In Process 00:28 Acetaminophen Tablet PHA 07/16/25 In Process (Tylenol Tablet) 00:30 Stat Ekg For Chest VIN 07/16/25 In Process Pain 00:28 Notify Md Of Changes VIN 07/16/25 In Process From Base 00:28 Glucose Blood PHA 07/16/25 In Process (Accu-Chek Comfort 07:00 Insulin R (Human) PHA 07/16/25 In Process (Insulin R) 07:00 Dextrose 50% Syringe PHA 07/16/25 In Process 00:30 Sodium Chloride 0.9% PHA 07/16/25 In Process 00:30 Insulin Lantus PHA 07/16/25 In Process (Glargine) (Lantus) 22:00 Drug Screen LAB 07/16/25 Logged 00:28 Fluticasone Nasal PHA 07/16/25 In Process [place] (Flonase [place]) 10:00 Amlodipine Tablet PHA 07/16/25 In Process (Norvasc Tablet) 10:00 Atorvastatin (Lipitor) PHA 07/16/25 In Process 22:00 Aspirin Tablet PHA 07/17/25 In Process 10:00 Date of Service: Jul 16, 2025 Billing Provider: LANDY GOMEZ MD Common Visit Codes: [id number] INP/OBS CARE (HIGH) Secondary Visit Codes: [id number] CARE PLAN 30 MINUTES DEIDRA MARTIN RESIDENT Jul 16, 2025 02:00 DONALD SANDOVAL RESIDENT Jul 16, 2025 08:20 LANDY GOMEZ MD Jul 21, 2025 11:54
[2025-07-16] MEDS: ATORVASTATIN 20 MG TAB PO ONE (02:15)
[2025-07-16] MEDS: ACETAMINOPHEN 325 MG TAB PO ONE (02:15)
[2025-07-16] MEDS: FLUTICASONE PROP NASAL SPR 0.05 % (50MCG) 16GM EACHNOSTRI ONE (03:16)
[2025-07-16] MEDS: SODIUM CHLORIDE 0.9% 1,000 ML IV ONE (03:16)
[2025-07-16 05:02] LABS: Hematocrit 43.6 % (41.0-53.0); Hemoglobin 14.0 g/dL (13.5-17.5); Mean Corpuscular Hemoglobin 27.5 pg (28.0-32.0); Mean Corpuscular Volume 85.2 fL (80.0-100.0); Nucleated Red Blood Cells % 0.1 %
[2025-07-16 05:14] LABS: Alanine Aminotransferase 17 U/L (7-40); Albumin 4.3 g/dL (3.2-4.8); Alkaline Phosphatase 109 U/L (46-116); Anion Gap 8 (5-15); BUN/Creatinine Ratio 6.9 (10.0-20.0); Bilirubin, Total 0.5 mg/dL (0.2-1.0); Blood Urea Nitrogen 9 mg/dL (9-23); Calcium 9.3 mg/dL (8.7-10.4); Carbon Dioxide 24 mmol/L (20-31); Chloride 104 mmol/L (98-107); Cholesterol 142 mg/dL (< 200); Potassium 4.1 mmol/L (3.5-5.1); Sodium 136 mmol/L (136-145); Total Protein 7.1 g/dL (5.7-8.2)
[2025-07-16 05:15] LABS: Glucose 337 mg/dL (74-106); HDL Cholesterol 39 mg/dL (40-59); Triglycerides 166 mg/dL (< 150)
[2025-07-16 05:41] LABS: Amphetamine Screen, Urine Neg (NEGATIVE); Cannabinoid Screen, Urine Pos (NEGATIVE)
[2025-07-16 05:43] LABS: Barbiturate Scree,Urine Neg (NEGATIVE); Benzodiazephine Screen, Urine Neg (NEGATIVE); Cocaine Screen, Urine Neg (NEGATIVE); Opiate Scree,Urine Neg (NEGATIVE); Phencyclidine Screen, Urine Neg (NEGATIVE)
[2025-07-16] MEDS: InsuLIN REG 1unit/0.01ml Soln (100units/ml) SC SCH (06:13)
[2025-07-16] MEDS: ACCU-CHEK COMFORT CURVE STRIP VI SCH (06:13)
--- NOTE | 2025-07-16 07:49 | DVHINCON2 ---
Date of service: Jul 16, [address] Sosa Reason for Consultation Headache History of Present Illness Mr. Medina is a 54 years old left-handed gentleman with a history of hypertension, diabetes, dyslipidemia, he was brought to the [facility] on 07/15/25 with a chief complaint of headache. At that time, he is alert and oriented x3, but is not very good historian He reports a history of headache coincidentally after he had stroke in 10/2024, that will be further described. Admitting, the headache was intermittent throbbing headache, mostly 6/10, four days ago, he woke up with intense throbbing global headache, 07/02, and over a few hours, the head evolve into /10, the headache intensity diminished when he massage bilateral temporal head region. In the emergency room, his CT brain scan shows evidence of acute lacunar strokes, and suspected 3 mm aneurysm in the left M1-M2 bifurcation In 10/2024, he developed acute left-sided weakness numbness, the patient is seen in the local hospital, likely [facility], and then he was transferred to the [facility] where he was said to have a stroke, and brain aneurysm, accor ki to his description, calling attempted however failed, he is advised not to treat the brain aneurysm and he follows up with a specialist in the [facility] and another doctor in the [place] He remembers taking aspirin at home, he also takes a cholesterol medication, and other medications He takes pain medication for headache on daily basis for several months UDS, 07/15/2025: Cannabinoids CBC, 07/16/2025: Unremarkable ESR, 07/15/2025: 12 PT/INR/ABG, 07/15/2025: 9.8/0.92/25.8 BUN/CR, 07/15/2025: 9/1.31 GFR, 07/16/2025: 65 HGB A1c, 07/16/25: 13.1 TG/HDL/LDL/HDL, 07/16/2025: 166/122/84/39 CT head, 07/15/25: No acute intracranial abnormality seen. Old right basal ganglia lacunar infarcts CTA head, 07/15/2025:1. Suspected 3 mm aneurysm of the left M1/M2 bifurcation. Comparison with prior imaging is suggested. 2. No large vessel occlusion Past Medical History Hypertension, dyslipidemia, diabetes, brain aneurysm, stroke Past Surgical History Failed endovascular coiling Family History: Patient reports no known family medical history. Family History No brain aneurysm or other major medical problems Social History He has a tobacco smoke, he has no history of drug or alcohol abuse Allergies: Coded Allergies: Penicillins (Verified Allergy, Unknown, 02/27/23) Home Meds No Active Prescriptions or Reported Meds Current Medications Current Medications Medications (Trade) Dose Ordered Sig/Ruy Route PRN Reason Start Time Stop Time Status Last Admin Labetalol HCl (Labetalol HCl) 5 mg Q2HPRN PRN IV SBP>150 07/15/25 18:30 07/16/25 05:01 DC Ondansetron HCl (Zofran) 4 mg Q4HP PRN IV NAUSEA / VOMITING 07/16/25 00:30 Acetaminophen (Tylenol Tablet) 650 mg Q6HP PRN PO PAIN SCALE 1-3 OR TEMP>100.4 07/16/25 00:30 Diagnostic Test (Pha) (Accu-Chek Comfort Curve T) 1 strip ACHS 07/16/25 07:00 07/16/25 06:23 Insulin Human Regular (InsuLIN R) AC SC 07/16/25 07:00 07/16/25 06:22 Dextrose 50 ml UD PRN IV Blood Sugar LESS THAN 60 07/16/25 00:30 Insulin Glargine (Lantus) 15 units HS SC 07/16/25 22:00 Fluticasone Propionate (Flonase Wilson) 50 mcg Q12HR EACHNOSTRI 07/16/25 10:00 Amlodipine Besylate (Norvasc Tablet) 5 mg DAILY PO 07/16/25 10:00 Aspirin 81 mg DAILY PO 07/17/25 10:00 Atorvastatin Calcium (Lipitor) 40 mg HS PO 07/16/25 22:00 Acetaminophen/ Hydrocodone Bitart ([place] 5/325MG Tab) 1 tab Q6HPRN PRN PO MODERATE PAIN (4-6 PAIN SCALE) 07/16/25 05:00 Review of Systems As above, the other systems are negative Vital Signs Vital Signs Date Time Temp Pulse Resp B/P (MAP) Pulse Ox O2 Delivery O2 Flow Rate FiO2 07/16/25 05:00 97.7 63 20 114/80 (91) 98 97.7 07/16/25 03:29 Room Air* 0 21 Physical Exam GENERAL EXAM: General: the patient is well developed and nourished. No acute distress. HEENT: Normocephalic, neck is supple, no carotid bruits. No mass. RESPIRATORY: Normal respiratory effort with symmetrical lung expansion. Lungs clear to auscultation. CARDIOVASCULAR: Regular rate and rhythm with no murmurs. S1, S2. ABDOMEN: Soft, nontender, normal bowel sound NEUROLOGICAL: MENTAL STATUS: Awake and alert. Oriented to person, place, time and general circumstances. SPEECH, LANGUAGE, HIGHER CORTICAL FUNCTION: no aphasia or dysathria. CRANIAL NERVES: #2: Intact visual guerrero to confrontation, but image in the left visual field is not as sharp. Left monocular blurry vision #3,4,6: Pupils are equal, round and reactive. EOMs full and conjugate. No nystagmus. #5: Facial sensation is diminished in the left face. Mandibular strength intact. #7: Facial muscles symmetrical and strength intact. #8: Hearing grossly normal to voice. #9,10: Uvula and soft palate rise in the midline. Swallow and voice are normal. #11: Trapezius and sternomastoid strength intact bilaterally. #12: Tongue midline. No fasciculations or atrophy. SENSATION: Sensation to touch and pinprick is diminished in the left arm than leg MOTOR: Normal tone in the upper and lower extremity. Normal muscle bulk. No fasciculations. No abnormal movements or posturing. Muscle strength of the major groups in the right extremities is 5/5. Muscle strength of the major groups in the left extremities: Arm: 3/5, Le-4/5. REFLEXES: Deep tendon reflexes are increased in the left knee. No pathological reflexes. CEREBELLAR/COORDINATION: Deferred GAIT/STATION: deferred. Labs/Diagnostic Data Labs Test 07/16/25 06:16 07/16/25 04:06 07/15/25 19:45 07/15/25 19:00 Range/Units POC Glucose 316 H 70-106 mg/dl White Blood Count 9.4 4.4-10.8 10^3/uL Red Blood Count 5.11 4.5-5.90 10^6/uL Hemoglobin 14.0 13.5-17.5 g/dL Hematocrit 43.6 41.0-53.0 % Mean Corpuscular Volume 85.2 80.0-100.0 fL Mean Corpuscular Hemoglobin 27.5 L 28.0-32.0 pg Mean Corpuscular Hemoglobin Concent 32.2 32.0-36.0 g/dL Red Cell Distribution Width 13.7 11.8-14.3 % Platelet Count 200 140-450 10^3/uL Mean Platelet Volume 7.2 6.9-10.8 fL Neutrophils (%) (Auto) 50.4 37.0-80.0 % Lymphocytes (%) (Auto) 39.2 10.0-50.0 % Monocytes (%) (Auto) 7.2 0.0-12.0 % Eosinophils (%) (Auto) 2.7 0.0-7.0 % Basophils (%) (Auto) 0.5 0.0-2.0 % Neutrophils # (Auto) 4.7 1.6-8.6 10 ^3/uL Lymphocytes # (Auto) 3.7 0.4-5.4 10 ^3/uL Monocytes # (Auto) 0.7 0-1.3 10 ^3/uL Eosinophils # (Auto) 0.3 0-0.8 10 ^3/uL Basophils # (Auto) 0 0-0.2 10 ^3/uL Nucleated Red Blood Cells 0.1 % Sodium Level 136 136-145 mmol/L Potassium Level 4.1 3.5-5.1 mmol/L Chloride Level 104 98-107 mmol/L Carbon Dioxide Level 24 20-31 mmol/L Anion Gap 8 5-15 Blood Urea Nitrogen 9 9-23 mg/dL Creatinine 1.31 H 0.700-1.30 mg/dL Glomerular Filtration Rate Calc 65 >90 mL/min BUN/Creatinine Ratio 6.9 L 10.0-20.0 Serum Glucose 337 H 74-106 mg/dL Hemoglobin A1c 13.1 H <5.7 % A1C Calcium Level 9.3 8.7-10.4 mg/dL Total Bilirubin 0.5 0.2-1.0 mg/dL Aspartate Amino Transferase (AST) 15 13-40 U/L Alanine Aminotransferase (ALT) 17 7-40 U/L Alkaline Phosphatase 109 46-116 U/L Total Protein 7.1 5.7-8.2 g/dL Albumin 4.3 3.2-4.8 g/dL Triglycerides Level 166 H < 150 mg/dL Cholesterol Level 142 < 200 mg/dL LDL Cholesterol 84 < 100 mg/dL HDL Cholesterol 39 L 40-59 mg/dL Urine Color Light-yellow Yellow Urine Clarity Clear Clear Urine pH 5.5 5.0-9.0 Urine Specific [place] 1.038 H 1.001-1.035 Urine Protein Trace H Negative Urine Ketones Negative Negative Urine Blood Trace H Negative /uL Urine Nitrite Negative Negative Urine Bilirubin Negative Negative Urine Urobilinogen Normal Negative mg/dL Urine Leukocyte Esterase Negative Negative /uL Urine RBC 3 0 - 3 /hpf Urine Microscopic WBC < 1 0-3 /HPF Urine Squamous Epithelial Cells Few <5 /hpf Urine Bacteria None seen None Seen /hpf Urine Mucus Few None Seen Urine Glucose 4+ H Normal mg/dL Urine Opiates Screen Neg NEGATIVE Urine Fentanyl Screen Neg NEGATIVE Urine Barbiturates Screen Neg NEGATIVE Urine Phencyclidine Screen Neg NEGATIVE Urine Amphetamines Screen Neg NEGATIVE Urine Benzodiazepines Screen Neg NEGATIVE Urine Cocaine Screen Neg NEGATIVE Urine Cannabinoids Screen Pos NEGATIVE Troponin I High Sensitivity < 3 L </=54 ng/L Test 07/15/25 17:53 07/15/25 17:45 Range/Units Erythrocyte Sedimentation Rate 12 0-20 mm/hr Prothrombin Time 9.8 9.3-11.8 sec Prothrombin Time INR 0.92 0.9-1.15 Activated Partial Thromboplast Time 25.8 24.5-34.5 SEC Lactic Acid Level 1.5 0.4-2.0 mmol/L Magnesium Level 2.1 1.6-2.6 mg/dL B-Type Natriuretic Peptide 11.23 0-100 pg/mL Beta-Hydroxybutyric Acid 0.102 < 0.4 mmol/L Influenza Type A Antigen Negative Negative Influenza Type B Antigen Negative Negative SARS-CoV-2 Antigen (Rapid) Negative NEGATIVE Assessment Problem the headache Secondary stroke Medication overuse headache Stroke with residual left-sided weakness Left hemianopsia Left monocular blurry vision Plan/Recommendation Monitoring Supportive treatment Telemetry MR brain scan MRI orbital Aspirin 81 mg daily Lipitor 40 mg daily for now A trial of nortriptyline 50 mg HS for headache A trial of IV fluids, dexamethasone 10 mg daily, Reglan 15 mg t.i.d. for headache He has been advised to wean off pain medication regular basis for headache Physical therapy Progress: Poor This medical document was created using an electronic medical record system with [employer] dictation system. Although this document has been carefully reviewed, there may still be some phonetic and typographical errors. These areas are purely typographical due to imperfections of the software programs, and do not reflect any compromise in the patient's medical care. Plan discussed with: Patient, Other MARGY DAVIDSON MD Jul 16, 2025 07:49
[2025-07-16] MEDS: SODIUM CHLORIDE 0.9% 1,000 ML IV SCH (09:15)
[2025-07-16] MEDS ORDERED: LORazepam 2MG/ML-1ML VIAL IV PRN (09:15)
[2025-07-16] MEDS: HYDROcodone-ACET 5/325MG TAB PO PRN (09:43)
[2025-07-16] MEDS: FLUTICASONE PROP NASAL SPR 0.05 % (50MCG) 16GM EACHNOSTRI SCH (09:44)
--- NOTE | 2025-07-16 10:46 | DVH ---
CLINICAL HISTORY: CVA TECHNIQUE: Routine multiplanar imaging of the brain was performed without gadolinium contrast. COMPARISON: CT ANGIO HEAD/NECK on DOS: 07/15/25, CT HEAD WITHOUT CONTRAST on DOS: 07/15/25 FINDINGS: There is no abnormal restricted diffusion to suggest acute infarction. There are no significant chronic small vessel ischemic foci. There are old right putamen and caudate lacunar infarcts. There is no evidence for acute ischemic changes, mass, mass effect, or extra-axial fluid collection. There is no hydrocephalus or midline shift. The cerebral sulci and subarachnoid cisterns are not effa gustavo. The imaged paranasal sinuses are clear. The globes are intact. The midline structures, including the corpus callosum, are unremarkable. The intracranial flow voids are maintained. IMPRESSION: No acute intracranial abnormality seen. No evidence for acute infarct. Old right putamen and caudate lacunar infarcts
--- NOTE | 2025-07-16 11:33 | DVH ---
EXAM: MRI MRI ORBITS W OUT CONTRAST DATE OF SERVICE: 07/16/2025 10:23 AM ORDERING PHYSICIAN: DEIDRA MARTIN REASON FOR EXAM: Left monocular blurry vision TECHNIQUE: MRI images of the orbits were acquired without the administration of intravenous contrast . COMPARISON: MRI BRAIN HEAD WO CONTRAST on DOS: 07/16/25, CT HEAD WITHOUT CONTRAST on DOS: 07/15/25 FINDINGS: The globes are symmetric with no evidence for intra-ocular mass. The extraocular muscles appear normal. There is no evidence for intraconal or extraconal mass, infla mmatory process, or fluid collection. The optic nerves are unremarkable. IMPRESSION: Unremarkable nontrast MRI examination of the orbits.
[2025-07-16] MEDS: METOCLOPRAMIDE HCL 10 MG TAB PO SCH (14:00)
--- NOTE | 2025-07-16 16:09 | DVHPNRES ---
Progress Note Date Seen: Jul 16, 2025 Resident Creating Document: YISEL SAAVEDRA Medical Necessity Reason Pt with a Central, PICC or Fol: No Medical Necessity Reason Subjective Review of Systems This is a 54 year old male with PMHx of CVA (October) with sequela of left sided weakness(takes aspirin and an anticoagulants but is unsure of which one), brain aneurysms s/p failed endovascular coiling, type 2 diabetes mellitus on insulin, hypertension, hyperlipidemia, and pancreatitis, has come to the ER today with chief complaint of headache and generalized body aches. The patient states that he habitually has headaches, however in the last 3-4 days, it has increased in intensity. He describes his headaches as generalized , starting from the occipital region that radiates towards the front and down to his jaws, throbbing in nature, 10/10 intensity, associated with photophobia and phonophobia, improves slightly when he applies pressure in the temporal region and rests in a dark room. He also states that he has been fatigued, and has nasal congestion and discharge, nausea and a transitory period of decreased vision in the left eye on waking up with spontaneous resolution after 15 minutes. He states that this has been ongoing since his stroke event. The patient also reports that he ran out of blood pressure medication 2-3 days ago. He denies chest pain, abdominal pain, vomiting, weakness, loss of consciousness, disorientation, and exposure to sick contacts. Blood pressure on admission was 147/103, pulse 86, respiratory rate 18, temperature 97.0. Angio of the head and neck showed suspected 3 mm aneurysm of the left M1 / M2 bifurcation. CT scan of the head shows old right basilar ganglia lacunar infarct. past medical history: As stated above past surgical history: None social history: Patient denies smoking, drinking alcohol, or taking any other illicit drugs family history: Reviewed and noncontributory to the management of this case home medication: Patient can not remember medications but knows he takes insulin for diabetes allergies: Penicillins code status: Full code Constitutional: Yes: Other (headache); No: Fever, Chills, Sweats, Weakness, Malaise Eyes: No: Pain, Vision change, Conjunctivae inflammation, Eyelid inflammation, Other, Redness ENT: Nose discharge, Nose congestion; No: Ear pain, Ear discharge, Nose pain, Mouth pain, Mouth swelling, Throat pain, Throat swelling, Other Respiratory: No: Cough, Dry, Shortness of breath, SOB with excertion, Wheezing, Hemoptysis, Pleuritic Pain, Sputum, Wheezing, Other Cardiovascular: No: Chest Pain, Palpitations, Orthopnea, Paroxysmal Noc. Dyspnea, Edema, Lt Headedness, Other Gastrointestinal: Nausea; No: Vomiting, Abdominal Pain, Diarrhea, Constipation, Melena, Hematochezia, Other Genitourinary: No Dysuria, No Frequency, No Incontinence, No Hematuria, No Retention, No Other Musculoskeletal: No: other, neck pain, shoulder pain, arm pain, back pain, hand pain, leg pain, foot pain Skin: No: Rash, Lesions, Jaundice, Bruising, Other Neurological: No: Weakness, Numbness, Incoordination, Change in speech, Confusion, Seizures, Other Objective vital signs Vital Sign Date Time Temp Pulse Resp B/P (MAP) Pulse Ox O2 Delivery O2 Flow Rate FiO2 07/16/25 12:47 97.6 76 18 123/85 (98) 96 97.6 07/16/25 03:29 Room Air* 0 21 Total Intake and Output 07/15/25 07/15/25 07/16/25 15:00 23:00 07:00 Intake Total 200 ml Balance 200 ml medications Current Medications Medications Dose Ordered Sig/Ruy Route Start Time Stop Time Status Last Admin Dose Admin Ondansetron HCl 4 mg Q4HP PRN IV 07/16/25 00:30 Acetaminophen 650 mg Q6HP PRN PO 07/16/25 00:30 Diagnostic Test (Pha) 1 strip ACHS 07/16/25 07:00 07/16/25 11:30 1 STRIP Insulin Human Regular AC SC 07/16/25 07:00 07/16/25 12:06 3 UNITS Dextrose 50 ml UD PRN IV 07/16/25 00:30 Insulin Glargine 15 units HS SC 07/16/25 22:00 Fluticasone Propionate 50 mcg Q12HR EACHNOSTRI 07/16/25 10:00 07/16/25 09:44 50 MCG Amlodipine Besylate 5 mg DAILY PO 07/16/25 10:00 07/16/25 09:43 5 MG Aspirin 81 mg DAILY PO 07/17/25 10:00 Atorvastatin Calcium 40 mg HS PO 07/16/25 22:00 Acetaminophen/ Hydrocodone Bitart 1 tab Q6HPRN PRN PO 07/16/25 05:00 07/16/25 09:43 1 TAB Lorazepam 1 mg ONCE PRN IV 07/16/25 09:15 Nortriptyline HCl 25 mg HS PO 07/16/25 22:00 Sodium Chloride 1,000 ml @ 125 mls/hr Q8H IV 07/16/25 09:15 07/16/25 14:48 125 MLS/HR Dexamethasone Sodium Phosphate 10 mg/Dextrose 51 ml @ 204 mls/hr DAILY IV 07/17/25 10:00 Metoclopramide HCl 15 mg TID PO 07/16/25 14:00 Examination General Appearance: Alert, Oriented X3, Cooperative, No acute distress HEENT: Atraumatic, PERRLA, EOMI, Mucous membrane moist/pink Respiratory: Clear to auscultation, Normal air movement Cardiovascular: Regular rate, Normal S1, Normal S2, No murmurs, no chest wall tenderness Abdominal: Normal bowel sounds, Soft, No tenderness, No hepatospenomegaly, No masses Extremities: No clubbing, No cyanosis, No edema, Normal pulses, No tenderness/swelling Skin: No rashes, No breakdown, No significant lesion Neuro: Weakness in the left side upper and lower limbs, strength 1/5 Psych/Mental Status: Mental status NL, Mood NL laboratory and microbiology Laboratory Tests 07/16/25 04:06 Test 07/16/25 04:06 Range/Units Serum Glucose 337 H 74-106 mg/dL Problem List/Assessment/Plan Problem List/Assessment/Plan #Brain aneurysm #History of stroke, left-sided weakness #hypertension #hyperlipidemia #Migraine -CT scan of head: No acute intracranial abnormality seen; Old right basal ganglia lacunar infarcts. -angio of the head and neck shows Suspected 3 mm aneurysm of the left M1/M2 bifurcation. Comparison with prior imaging is suggested; No large vessel occlusion. - neurology consult placed - aspirin 81 mg daily - atorvastatin 40 mg daily HS - labetalol 5 mg IV Q 2 PRN if SBP>150 - amlodipine 5 mg p.o. daily - Zofran 4 mg IV q.4 PRN - acetaminophen 650 mg p.o. q.6 PRN -follow lipid profile # Possible acute sinusitis - Flonase 50 mcg each nostril daily # Type 2 diabetes mellitus - A1c 13 - insulin Lantus 15 units HS - Moderate sliding scale insulin - Accu-Cheks # MARY due to VMN - IV fluid 125 mL/ hour once - avoid any nephrotoxic agents # Morbid obesity, BMI 34.7 - patient was counseled regarding lifestyle modification, need of exercise, healthy diet and weight loss over 11 minutes Diet: cardiac and diabetic diet Goals of care discussed with the patient for more than 23 minutes: Full code status Case discussed with Dr. Mcneal Plan discussed with: Patient Plan discussed with: Patient Date of Service: Jul 16, 2025 Billing Provider: LYSSA MCNEAL MD Common Visit Codes: [id number] INP/OBS CARE(HIGH) YISEL SAAVEDRA RESIDENT Jul 16, 2025 16:09 LYSSA MCNEAL MD Jul 25, 2025 18:17
[2025-07-16] MEDS ORDERED: ASPI81CH74 PO (17:32)
[2025-07-16] MEDS ORDERED: LISI-275 PO (17:33)
[2025-07-16] MEDS ORDERED: CLOP75TA70 PO (17:33)
[2025-07-16] MEDS ORDERED: CLOP75TA28 PO (17:33)
[2025-07-16] MEDS ORDERED: BACL10TA PO (17:36)
[2025-07-16] MEDS ORDERED: METH-1181 PO (17:36)
[2025-07-16] MEDS: INSULIN LANTUS (GLARGINE) 1 /0.01ml (100units/ml) SC SCH (21:50)
[2025-07-16] MEDS: NORTRIPTYLINE HCL 25 MG CAP PO SCH (21:52)
[2025-07-16] MEDS: ATORVASTATIN 20 MG TAB PO SCH (22:10)
[2025-07-17] VITALS (7 sets, daily range): BP systolic 105–135; BP diastolic 61–82; PULSE 72–79; RESP 17–19; TEMP 97.7–98.2; O2SAT 94–97
[2025-07-17 06:45] LABS: Hematocrit 41.6 % (41.0-53.0); Hemoglobin 13.8 g/dL (13.5-17.5); Mean Corpuscular Hemoglobin 27.5 pg (28.0-32.0); Mean Corpuscular Volume 82.9 fL (80.0-100.0); Nucleated Red Blood Cells % 0.1 %
[2025-07-17 07:03] LABS: Chloride 104 mmol/L (98-107); Potassium 4.4 mmol/L (3.5-5.1); Sodium 138 mmol/L (136-145)
[2025-07-17 07:04] LABS: Anion Gap 10 (5-15); Carbon Dioxide 24 mmol/L (20-31)
[2025-07-17 07:05] LABS: Calcium 9.6 mg/dL (8.7-10.4)
[2025-07-17 07:09] LABS: BUN/Creatinine Ratio 10.3 (10.0-20.0); Blood Urea Nitrogen 12 mg/dL (9-23)
[2025-07-17 07:10] LABS: Glucose 200 mg/dL (74-106)
--- NOTE | 2025-07-17 15:01 | DVHPNRES ---
Progress Note Date Seen: Jul 17, 2025 Resident Creating Document: YISEL SAAVEDRA Medical Necessity Reason Pt with a Central, PICC or Fol: No Subjective Review of Systems Patient seen at bedside. He reports feeling better. Complains of headaches This is a 54 year old male with PMHx of CVA (October) with sequela of left sided weakness(takes aspirin and an anticoagulants but is unsure of which one), brain aneurysms s/p failed endovascular coiling, type 2 diabetes mellitus on insulin, hypertension, hyperlipidemia, and pancreatitis, has come to the ER today with chief complaint of headache and generalized body aches. The patient states that he habitually has headaches, however in the last 3-4 days, it has increased in intensity. He describes his headaches as generalized , starting from the occipital region that radiates towards the front and down to his jaws, throbbing in nature, 10/10 intensity, associated with photophobia and phonophobia, improves slightly when he applies pressure in the temporal region and rests in a dark room. He also states that he has been fatigued, and has nasal congestion and discharge, nausea and a transitory period of decreased vision in the left eye on waking up with spontaneous resolution after 15 minutes. He states that this has been ongoing since his stroke event. The patient also reports that he ran out of blood pressure medication 2-3 days ago. He denies chest pain, abdominal pain, vomiting, weakness, loss of consciousness, disorientation, and exposure to sick contacts. Blood pressure on admission was 147/103, pulse 86, respiratory rate 18, temperature 97.0. Angio of the head and neck showed suspected 3 mm aneurysm of the left M1 / M2 bifurcation. CT scan of the head shows old right basilar ganglia lacunar infarct. past medical history: As stated above past surgical history: None social history: Patient denies smoking, drinking alcohol, or taking any other illicit drugs family history: Reviewed and noncontributory to the management of this case home medication: Patient can not remember medications but knows he takes insulin for diabetes allergies: Penicillins code status: Full code Constitutional: Yes: Other (headache); No: Fever, Chills, Sweats, Malaise c/o bodyache Eyes: No: Pain, Vision change, Conjunctivae inflammation, Eyelid inflammation, Other, Redness ENT: Nose discharge, Nose congestion; No: Ear pain, Ear discharge, Nose pain, Mouth pain, Mouth swelling, Throat pain, Throat swelling, Other Respiratory: No: Cough, Dry, Shortness of breath, SOB with excertion, Wheezing, Hemoptysis, Pleuritic Pain, Sputum, Wheezing, Other Cardiovascular: No: Chest Pain, Palpitations, Orthopnea, Paroxysmal Noc. Dyspnea, Edema, Lt Headedness, Other Gastrointestinal: Nausea; No: Vomiting, Abdominal Pain, Diarrhea, Constipation, Melena, Hematochezia, Other Genitourinary: No Dysuria, No Frequency, No Incontinence, No Hematuria, No Retention, No Other Musculoskeletal: No: other, neck pain, shoulder pain, arm pain, back pain, hand pain, leg pain, foot pain Skin: No: Rash, Lesions, Jaundice, Bruising, Other Neurological: No: Weakness, Numbness, Incoordination, Change in speech, Confusion, Seizures, Other Objective vital signs Vital Sign Date Time Temp Pulse Resp B/P (MAP) Pulse Ox O2 Delivery O2 Flow Rate FiO2 07/17/25 09:54 122/82 07/17/25 09:00 97.8 75 18 96 97.8 07/17/25 07:55 Room Air* 0 21 Total Intake and Output 07/16/25 07/16/25 07/17/25 15:00 23:00 07:00 Intake Total 450 ml 1600 ml Balance 450 ml 1600 ml medications Current Medications Medications Dose Ordered Sig/Ruy Route Start Time Stop Time Status Last Admin Dose Admin Ondansetron HCl 4 mg Q4HP PRN IV 07/16/25 00:30 Acetaminophen 650 mg Q6HP PRN PO 07/16/25 00:30 Diagnostic Test (Pha) 1 strip ACHS 07/16/25 07:00 07/17/25 13:10 1 STRIP Insulin Human Regular AC SC 07/16/25 07:00 07/17/25 11:00 12 UNITS Dextrose 50 ml UD PRN IV 07/16/25 00:30 Insulin Glargine 15 units HS SC 07/16/25 22:00 07/16/25 21:50 15 UNITS Fluticasone Propionate 50 mcg Q12HR EACHNOSTRI 07/16/25 10:00 07/17/25 11:18 50 MCG Amlodipine Besylate 5 mg DAILY PO 07/16/25 10:00 07/17/25 09:54 5 MG Aspirin 81 mg DAILY PO 07/17/25 10:00 07/17/25 09:55 81 MG Atorvastatin Calcium 40 mg HS PO 07/16/25 22:00 07/16/25 22:10 40 MG Acetaminophen/ Hydrocodone Bitart 1 tab Q6HPRN PRN PO 07/16/25 05:00 07/16/25 18:38 1 TAB Lorazepam 1 mg ONCE PRN IV 07/16/25 09:15 Nortriptyline HCl 25 mg HS PO 07/16/25 22:00 07/16/25 21:52 25 MG Sodium Chloride 1,000 ml @ 125 mls/hr Q8H IV 07/16/25 09:15 07/17/25 11:26 125 MLS/HR Dexamethasone Sodium Phosphate 10 mg/Dextrose 51 ml @ 204 mls/hr DAILY IV 07/17/25 10:00 07/17/25 11:14 204 MLS/HR Metoclopramide HCl 15 mg TID PO 07/16/25 14:00 07/17/25 13:17 15 MG Lisinopril 5 mg DAILY PO 07/18/25 10:00 Clopidogrel Bisulfate 75 mg DAILY PO 07/18/25 10:00 Baclofen 10 mg Q8HP PRN PO 07/17/25 11:45 Examination General Appearance: Alert, Oriented X3, Cooperative, No acute distress HEENT: Atraumatic, PERRLA, EOMI, Mucous membrane moist/pink Respiratory: Clear to auscultation, Normal air movement Cardiovascular: Regular rate, Normal S1, Normal S2, No murmurs, no chest wall tenderness Abdominal: Normal bowel sounds, Soft, No tenderness, No hepatospenomegaly, No masses Extremities: No clubbing, No cyanosis, No edema, Normal pulses, No tenderness/swelling Skin: No rashes, No breakdown, No significant lesion Neuro: Weakness in the left side upper and lower limbs, strength 1/5 Psych/Mental Status: Mental status NL, Mood NL laboratory and microbiology Laboratory Tests 07/17/25 05:58 Test 07/17/25 05:58 Range/Units Serum Glucose 200 #H 74-106 mg/dL Problem List/Assessment/Plan Problem List/Assessment/Plan #Brain aneurysm #History of stroke, left-sided weakness #hyperlipidemia #Migraine -CT scan of head: No acute intracranial abnormality seen; Old right basal ganglia lacunar infarcts. -angio of the head and neck shows Suspected 3 mm aneurysm of the left M1/M2 bifurcation. Comparison with prior imaging is suggested; No large vessel occlusion. - neurology consult placed - aspirin 81 mg daily - atorvastatin 40 mg daily HS - labetalol 5 mg IV Q 2 PRN if SBP>150 - amlodipine 5 mg p.o. daily - Zofran 4 mg IV q.4 PRN - acetaminophen 650 mg p.o. q.6 PRN -follow lipid profile # Possible acute sinusitis - Flonase 50 mcg each nostril daily # Type 2 diabetes mellitus - A1c 13 - insulin Lantus 15 units HS - Moderate sliding scale insulin - Accu-Cheks - diabetes education # MARY due to VMN - IV fluid 125 mL/ hour once - avoid any nephrotoxic agents # Morbid obesity, BMI 34.7 - patient was counseled regarding lifestyle modification, need of exercise, healthy diet and weight loss over 11 minutes # essential hypertension Continue lisinopril Diet: cardiac and diabetic diet Goals of care discussed with the patient for more than 23 minutes: Full code status Case discussed with Dr. Mcneal Plan discussed with: Patient Plan discussed with: Patient My Orders My Orders Orders - YISEL SAAVEDRA Procedure Category Date Status Time Pt Request For Service PT 07/17/25 Logged 07:37 Lisinopril Tablet PHA 07/18/25 In Process (Zestril Tablet) 10:00 Clopidogrel Bisulfate PHA 07/18/25 In Process (Plavix) 10:00 Baclofen Tablet PHA 07/17/25 In Process (Liorisal Tablet) 11:45 Date of Service: Jul 17, 2025 Billing Provider: LYSSA MCNEAL MD Common Visit Codes: [id number] INP/OBS CARE(HIGH) YISEL SAAVEDRA RESIDENT Jul 17, 2025 15:01 LYSSA MCNEAL MD Jul 25, 2025 18:17
[2025-07-17] MEDS: INSULIN LANTUS (GLARGINE) 1 /0.01ml (100units/ml) SC SCH (21:13)
[2025-07-17] MEDS ORDERED: ATORVASTATIN 20 MG TAB PO SCH (22:00)
[2025-07-18 01:00] VITALS: BP_SYST 117; BP_SYST 123; BP_DIAS 67; BP_DIAS 81; PULSE 75; RESP 16; RESP 19; TEMP 97.2; O2SAT 100; O2SAT 90
[2025-07-18] MEDS: DOCUSATE SOD 100 MG CAP PO PRN (01:02)
[2025-07-18 05:00] VITALS: BP 121/67; PULSE 61; RESP 15; TEMP 97.3; O2SAT 90
[2025-07-18 07:30] VITALS: PULSE 70; RESP 16; O2SAT 98
[2025-07-18 09:00] VITALS: BP 116/67; PULSE 67; RESP 18; TEMP 98; O2SAT 100
[2025-07-18 09:37] LABS: Anion Gap 8 (5-15); Carbon Dioxide 26 mmol/L (20-31); Chloride 106 mmol/L (98-107); Potassium 4.3 mmol/L (3.5-5.1); Sodium 140 mmol/L (136-145)
[2025-07-18] MEDS: CLOPIDOGREL BISULFATE 75 MG TAB PO SCH (09:37)
[2025-07-18 09:38] LABS: Calcium 9.1 mg/dL (8.7-10.4)
[2025-07-18 09:43] LABS: BUN/Creatinine Ratio 10.6 (10.0-20.0); Blood Urea Nitrogen 13 mg/dL (9-23)
[2025-07-18 09:44] LABS: Glucose 244 mg/dL (74-106)
[2025-07-18] MEDS: LISINOPRIL 5 MG TAB PO SCH (10:00)
[2025-07-18] MEDS: BACLOFEN 10 MG TAB PO PRN (10:25)
--- NOTE | 2025-07-18 12:01 | DVHDSRES ---
Discharge Summary Date of Admission Resident Creating Document: WOJCIECH NORIEGA RESIDENT Jul 16, 2025 at 00:28 Date of Discharge: Jul 18, 2025 Labs/Diagnostic Data: Laboratory Results Test 07/18/25 10:40 07/18/25 08:23 07/17/25 05:58 07/16/25 04:06 POC Glucose 286 mg/dl (70-106) Sodium Level 140 mmol/L (136-145) Potassium Level 4.3 mmol/L (3.5-5.1) Chloride Level 106 mmol/L (98-107) Carbon Dioxide Level 26 mmol/L (20-31) Anion Gap 8 (5-15) Blood Urea Nitrogen 13 mg/dL (9-23) Creatinine 1.23 mg/dL (0.700-1.30) Glomerular Filtration Rate Calc 70 mL/min (>90) BUN/Creatinine Ratio 10.6 (10.0-20.0) Serum Glucose 244 mg/dL (74-106) Calcium Level 9.1 mg/dL (8.7-10.4) White Blood Count 9.1 10^3/uL (4.4-10.8) Red Blood Count 5.01 10^6/uL (4.5-5.90) Hemoglobin 13.8 g/dL (13.5-17.5) Hematocrit 41.6 % (41.0-53.0) Mean Corpuscular Volume 82.9 fL (80.0-100.0) Mean Corpuscular Hemoglobin 27.5 pg (28.0-32.0) Mean Corpuscular Hemoglobin Concent 33.2 g/dL (32.0-36.0) Red Cell Distribution Width 13.3 % (11.8-14.3) Platelet Count 220 10^3/uL (140-450) Mean Platelet Volume 7.6 fL (6.9-10.8) Neutrophils (%) (Auto) 84.7 % (37.0-80.0) Lymphocytes (%) (Auto) 11.4 % (10.0-50.0) Monocytes (%) (Auto) 3.8 % (0.0-12.0) Eosinophils (%) (Auto) 0.0 % (0.0-7.0) Basophils (%) (Auto) 0.1 % (0.0-2.0) Neutrophils # (Auto) 7.8 10 ^3/uL (1.6-8.6) Lymphocytes # (Auto) 1.0 10 ^3/uL (0.4-5.4) Monocytes # (Auto) 0.3 10 ^3/uL (0-1.3) Eosinophils # (Auto) 0 10 ^3/uL (0-0.8) Basophils # (Auto) 0 10 ^3/uL (0-0.2) Nucleated Red Blood Cells 0.1 % Hemoglobin A1c 13.1 % A1C (<5.7) Total Bilirubin 0.5 mg/dL (0.2-1.0) Aspartate Amino Transferase (AST) 15 U/L (13-40) Alanine Aminotransferase (ALT) 17 U/L (7-40) Alkaline Phosphatase 109 U/L (46-116) Total Protein 7.1 g/dL (5.7-8.2) Albumin 4.3 g/dL (3.2-4.8) Triglycerides Level 166 mg/dL (< 150) Cholesterol Level 142 mg/dL (< 200) LDL Cholesterol 84 mg/dL (< 100) HDL Cholesterol 39 mg/dL (40-59) Test 07/15/25 19:45 07/15/25 19:00 07/15/25 17:53 07/15/25 17:45 Urine Color Light-yellow (Yellow) Urine Clarity Clear (Clear) Urine pH 5.5 (5.0-9.0) Urine Specific Lane 1.038 (1.001-1.035) Urine Protein Trace (Negative) Urine Ketones Negative (Negative) Urine Blood Trace /uL (Negative) Urine Nitrite Negative (Negative) Urine Bilirubin Negative (Negative) Urine Urobilinogen Normal mg/dL (Negative) Urine Leukocyte Esterase Negative /uL (Negative) Urine RBC 3 /hpf (0 - 3) Urine Microscopic WBC < 1 /HPF (0-3) Urine Squamous Epithelial Cells Few /hpf (<5) Urine Bacteria None seen /hpf (None Seen) Urine Mucus Few (None Seen) Urine Glucose 4+ mg/dL (Normal) Urine Opiates Screen Neg (NEGATIVE) Urine Fentanyl Screen Neg (NEGATIVE) Urine Barbiturates Screen Neg (NEGATIVE) Urine Phencyclidine Screen Neg (NEGATIVE) Urine Amphetamines Screen Neg (NEGATIVE) Urine Benzodiazepines Screen Neg (NEGATIVE) Urine Cocaine Screen Neg (NEGATIVE) Urine Cannabinoids Screen Pos (NEGATIVE) Troponin I High Sensitivity < 3 ng/L (</=54) Erythrocyte Sedimentation Rate 12 mm/hr (0-20) Prothrombin Time 9.8 sec (9.3-11.8) Prothrombin Time INR 0.92 (0.9-1.15) Activated Partial Thromboplast Time 25.8 SEC (24.5-34.5) Lactic Acid Level 1.5 mmol/L (0.4-2.0) Magnesium Level 2.1 mg/dL (1.6-2.6) B-Type Natriuretic Peptide 11.23 pg/mL (0-100) Beta-Hydroxybutyric Acid 0.102 mmol/L (< 0.4) Influenza Type A Antigen Negative (Negative) Influenza Type B Antigen Negative (Negative) SARS-CoV-2 Antigen (Rapid) Negative (NEGATIVE) Other Laboratory Tests 07/18/25 08:23 07/17/25 05:58 Final Diagnosis/Problems List #Brain aneurysm #History of stroke, left-sided weakness #hyperlipidemia #Migraine -CT scan of head: No acute intracranial abnormality seen; Old right basal ganglia lacunar infarcts. -angio of the head and neck shows Suspected 3 mm aneurysm of the left M1/M2 bifurcation. Comparison with prior imaging is suggested; No large vessel occlusion. - neurology consult placed - aspirin 81 mg daily - atorvastatin 40 mg daily HS - labetalol 5 mg IV Q 2 PRN if SBP>150 - amlodipine 5 mg p.o. daily - Zofran 4 mg IV q.4 PRN - acetaminophen 650 mg p.o. q.6 PRN -follow lipid profile # Possible acute sinusitis - Flonase 50 mcg each nostril daily # Type 2 diabetes mellitus - A1c 13 - insulin Lantus 15 units HS - Moderate sliding scale insulin - Accu-Cheks - diabetes education # MARY due to VMN - IV fluid 125 mL/ hour once - avoid any nephrotoxic agents # Morbid obesity, BMI 34.7 - patient was counseled regarding lifestyle modification, need of exercise, healthy diet and weight loss over 11 minutes # essential hypertension Continue lisinopril Discharge Disposition: Home Discharge Instruct/Medications Diet: Consistent carbohydrate Activity: No Restrictions, As Tolerated Follow Up/Referral: Please follow up with PCP in 1 week Please follow up with Neurology in the outpatient Medications: Refilled home insulin Lantus 30 units q.p.m. next Refilled home insulin regular per sliding scale Refilled home supplies including but not limited to glucometer, lancets, alcohol swabs, testing strips Scheduled Aspirin (Aspirin 81 Low Dose), 81 MG PO DAILY, (Reported) Atorvastatin Calcium (Atorvastatin Calcium), 40 MG PO HS Clopidogrel Bisulfate (Plavix), 1 TAB PO DAILY, (Reported) Clopidogrel Bisulfate (Clopidogrel), 75 MG PO DAILY, (Reported) Insulin Aspart (Insulin Aspart Flexpen), 3 UNIT SC TIDWMEALS Insulin Glargine (Basaglar Kwikpen), 30 UNIT SC HS Lisinopril (Lisinopril), 5 MG PO DAILY, (Reported) Methocarbamol (Methocarbamol), 500 MG PO Q8HP, (Reported) Metoclopramide HCl (Metoclopramide Hydrochlor), 15 MG PO TID Scheduled PRN Baclofen (Baclofen), 10 MG PO Q8HP PRN for FOR MUSCLE SPASM, (Reported) Durable Medical Equipment Blood Glucose Monitoring Suppl (Freestyle Lite Blood Gluc), MIS XX TID, (DME) Isopropyl Alcohol (Alcohol Pads), % XX TIDWMEALS, (DME) Lancets (Freestyle Lancets), KIT XX TID, (DME) Discharge Statement: "Patient was advised to return to the ER or call 911 if any headaches, dizziness, shortness of breath, chest pain, abdominal pain, bleeding, fevers, or worsening of medical condition. Patient was counseled about treatment plan, medications, possible side effects, patientverbalized understanding. All questions were answered to the best of my ability. This discharge took greater then 30 minutes in planning, reviewing documentation, counseling the patient, and discussing with other team members." ASSESSMENT ASSESSMENT Assessment #Brain aneurysm #History of stroke, left-sided weakness #hyperlipidemia #Migraine -CT scan of head: No acute intracranial abnormality seen; Old right basal ganglia lacunar infarcts. -angio of the head and neck shows Suspected 3 mm aneurysm of the left M1/M2 bifurcation. Comparison with prior imaging is suggested; No large vessel occlusion. - neurology consult placed - aspirin 81 mg daily - atorvastatin 40 mg daily HS - labetalol 5 mg IV Q 2 PRN if SBP>150 - amlodipine 5 mg p.o. daily - Zofran 4 mg IV q.4 PRN - acetaminophen 650 mg p.o. q.6 PRN -follow lipid profile # Possible acute sinusitis - Flonase 50 mcg each nostril daily # Type 2 diabetes mellitus - A1c 13 - insulin Lantus 15 units HS - Moderate sliding scale insulin - Accu-Cheks - diabetes education # MARY due to VMN - IV fluid 125 mL/ hour once - avoid any nephrotoxic agents # Morbid obesity, BMI 34.7 - patient was counseled regarding lifestyle modification, need of exercise, healthy diet and weight loss over 11 minutes # essential hypertension Continue lisinopril WOJCIECH NORIEGA RESIDENT Jul 18, 2025 12:01
[2025-07-18] MEDS ORDERED: ATOR20TA50 PO (12:13)
[2025-07-18] MEDS ORDERED: INSU100I51 SC (12:13)
[2025-07-18] MEDS ORDERED: LANC-347 XX (12:13)
[2025-07-18] MEDS ORDERED: INSU1INJ19 SC (12:13)
[2025-07-18] MEDS ORDERED: ALCOPAD62 XX (12:13)
[2025-07-18] MEDS ORDERED: METO10TA4 PO (12:13)
[2025-07-18] MEDS ORDERED: BLOOMIS91 XX (12:13)
--- NOTE | 2025-07-18 12:14 | DVHDSRES ---
Discharge Summary Date of Admission Resident Creating Document: WOJCIECH NORIEGA RESIDENT Jul 16, 2025 at 00:28 Date of Discharge: Jul 18, 2025 Admitting Diagnosis Acute intractable headache Labs/Diagnostic Data: Laboratory Results Test 07/18/25 10:40 07/18/25 08:23 07/17/25 05:58 07/16/25 04:06 POC Glucose 286 mg/dl (70-106) Sodium Level 140 mmol/L (136-145) Potassium Level 4.3 mmol/L (3.5-5.1) Chloride Level 106 mmol/L (98-107) Carbon Dioxide Level 26 mmol/L (20-31) Anion Gap 8 (5-15) Blood Urea Nitrogen 13 mg/dL (9-23) Creatinine 1.23 mg/dL (0.700-1.30) Glomerular Filtration Rate Calc 70 mL/min (>90) BUN/Creatinine Ratio 10.6 (10.0-20.0) Serum Glucose 244 mg/dL (74-106) Calcium Level 9.1 mg/dL (8.7-10.4) White Blood Count 9.1 10^3/uL (4.4-10.8) Red Blood Count 5.01 10^6/uL (4.5-5.90) Hemoglobin 13.8 g/dL (13.5-17.5) Hematocrit 41.6 % (41.0-53.0) Mean Corpuscular Volume 82.9 fL (80.0-100.0) Mean Corpuscular Hemoglobin 27.5 pg (28.0-32.0) Mean Corpuscular Hemoglobin Concent 33.2 g/dL (32.0-36.0) Red Cell Distribution Width 13.3 % (11.8-14.3) Platelet Count 220 10^3/uL (140-450) Mean Platelet Volume 7.6 fL (6.9-10.8) Neutrophils (%) (Auto) 84.7 % (37.0-80.0) Lymphocytes (%) (Auto) 11.4 % (10.0-50.0) Monocytes (%) (Auto) 3.8 % (0.0-12.0) Eosinophils (%) (Auto) 0.0 % (0.0-7.0) Basophils (%) (Auto) 0.1 % (0.0-2.0) Neutrophils # (Auto) 7.8 10 ^3/uL (1.6-8.6) Lymphocytes # (Auto) 1.0 10 ^3/uL (0.4-5.4) Monocytes # (Auto) 0.3 10 ^3/uL (0-1.3) Eosinophils # (Auto) 0 10 ^3/uL (0-0.8) Basophils # (Auto) 0 10 ^3/uL (0-0.2) Nucleated Red Blood Cells 0.1 % Hemoglobin A1c 13.1 % A1C (<5.7) Total Bilirubin 0.5 mg/dL (0.2-1.0) Aspartate Amino Transferase (AST) 15 U/L (13-40) Alanine Aminotransferase (ALT) 17 U/L (7-40) Alkaline Phosphatase 109 U/L (46-116) Total Protein 7.1 g/dL (5.7-8.2) Albumin 4.3 g/dL (3.2-4.8) Triglycerides Level 166 mg/dL (< 150) Cholesterol Level 142 mg/dL (< 200) LDL Cholesterol 84 mg/dL (< 100) HDL Cholesterol 39 mg/dL (40-59) Test 07/15/25 19:45 07/15/25 19:00 07/15/25 17:53 07/15/25 17:45 Urine Color Light-yellow (Yellow) Urine Clarity Clear (Clear) Urine pH 5.5 (5.0-9.0) Urine Specific [place] 1.038 (1.001-1.035) Urine Protein Trace (Negative) Urine Ketones Negative (Negative) Urine Blood Trace /uL (Negative) Urine Nitrite Negative (Negative) Urine Bilirubin Negative (Negative) Urine Urobilinogen Normal mg/dL (Negative) Urine Leukocyte Esterase Negative /uL (Negative) Urine RBC 3 /hpf (0 - 3) Urine Microscopic WBC < 1 /HPF (0-3) Urine Squamous Epithelial Cells Few /hpf (<5) Urine Bacteria None seen /hpf (None Seen) Urine Mucus Few (None Seen) Urine Glucose 4+ mg/dL (Normal) Urine Opiates Screen Neg (NEGATIVE) Urine Fentanyl Screen Neg (NEGATIVE) Urine Barbiturates Screen Neg (NEGATIVE) Urine Phencyclidine Screen Neg (NEGATIVE) Urine Amphetamines Screen Neg (NEGATIVE) Urine Benzodiazepines Screen Neg (NEGATIVE) Urine Cocaine Screen Neg (NEGATIVE) Urine Cannabinoids Screen Pos (NEGATIVE) Troponin I High Sensitivity < 3 ng/L (</=54) Erythrocyte Sedimentation Rate 12 mm/hr (0-20) Prothrombin Time 9.8 sec (9.3-11.8) Prothrombin Time INR 0.92 (0.9-1.15) Activated Partial Thromboplast Time 25.8 SEC (24.5-34.5) Lactic Acid Level 1.5 mmol/L (0.4-2.0) Magnesium Level 2.1 mg/dL (1.6-2.6) B-Type Natriuretic Peptide 11.23 pg/mL (0-100) Beta-Hydroxybutyric Acid 0.102 mmol/L (< 0.4) Influenza Type A Antigen Negative (Negative) Influenza Type B Antigen Negative (Negative) SARS-CoV-2 Antigen (Rapid) Negative (NEGATIVE) Other Laboratory Tests 07/18/25 08:23 07/17/25 05:58 Brief Hx & Hospital Course: Mr. Medina is a 54 year old male with PMHx of CVA in October with sequela of left sided weakness(patient is on anticoagulants but is unsure of which one), brain aneurysms s/p failed endovascular coiling, type 2 diabetes mellitus, hypertension, and hyperlipidemia,, who presents today with chief complaint of headache and generalized body aches. The patient states that he habitually has headaches, however in the last 3-4 days he these have increased in intensity. He describes his headaches as generalized, throbbing in nature, 10/10 intensity, associated with photophobia and phonophobia, improves slightly with appointment in bilateral temporal pressure and resting in a dark room. Additionally refers fatigue, febrile sensation, nasal congestion and discharge, nausea, bilateral jaw pain, and a transitory period of decreased vision in the left eye with spontaneous resolution. The patient also reports that he ran out of blood pressure medication 2-3 days ago. He denies chest pain, abdominal pain, vomiting, weakness, loss of consciousness, disorientation, and exposure to sick contacts. Due to persistence of symptoms, he presented to the ED for further evaluation. Hospital course: Head CT showed no acute intracranial abnormality, old right basal ganglia lacunar infarcts. Head and neck CT angiogram without contrast showed a suspected 3 mm aneurysm of the left M1/M2 bifurcation. No large vessel occlusion. MRI brain showed no acute intracranial abnormality, no evidence for acute infarct. Old right putamen and caudate lacunar infarcts. MRI of the orbits without contrast showed unremarkable noncontrast MRI examination of the orbit. Neurology was consulted, patient was started on aspirin 81 mg, atorvastatin 40 mg as well as labetalol p.r.n. and resumption of home medication amlodipine 5 mg. Acute bacterial sinusitis was managed with Flonase 50 mcg, patient has uncontrolled diabetes with A1c of 13 was managed with insulin Lantus 15 units HS as well as a moderate sliding scale insulin, diabetic education was provided to the patient. Fluid resuscitation was continued with ultimate resolution of hemodynamically mediated MARY. For intractable headache, patient was trialed on nortriptyline and metoclopramide which subsided the headache. Patient was counseled extensively to avoid overusing medication for headaches as that might have led to his medication overuse headache. Patient demonstrated understanding. On the day of discharge, patient appeared well and had stable vital signs, patient was discharged home with insulin Lantus 30 units HS which per patient is his home dose, along with insulin aspart per moderate sliding scale t.i.d. before meals, patient was also sent glucometer, lancets and needles with instructions to check blood glucose levels every time before dosing insulin, patient demonstrated understanding. Patient was also sent home with a 2 week dose of metoclopramide 15 mg t.i.d.. His hospital course was uncomplicated. Consults/Reason for consult Neurology: Acute intractable headache Condition at Discharge: Good Final Diagnosis/Problems List # acute intractable headache, ruled out CVA, ruled out ICH #Brain aneurysm #History of stroke, left-sided weakness #hyperlipidemia #Migraine # Possible acute sinusitis # Type 2 diabetes mellitus # MARY due to VMN # Morbid obesity, BMI 34.7 # essential hypertension Discharge Disposition: Home Discharge Instruct/Medications Diet: Consistent carbohydrate Activity: No Restrictions, As Tolerated Follow Up/Referral: Please follow up with PCP in 1 week Please follow up with Neurology in the outpatient Medications: Refilled home insulin Lantus 30 units q.p.m. next Refilled home insulin regular per sliding scale Refilled home supplies including but not limited to glucometer, lancets, alcohol swabs, testing strips Scheduled Aspirin (Aspirin 81 Low Dose), 81 MG PO DAILY, (Reported) Atorvastatin Calcium (Atorvastatin Calcium), 40 MG PO HS Clopidogrel Bisulfate (Plavix), 1 TAB PO DAILY, (Reported) Clopidogrel Bisulfate (Clopidogrel), 75 MG PO DAILY, (Reported) Insulin Aspart (Insulin Aspart Flexpen), 3 UNIT SC TIDWMEALS Insulin Glargine (Basaglar Kwikpen), 30 UNIT SC HS Lisinopril (Lisinopril), 5 MG PO DAILY, (Reported) Methocarbamol (Methocarbamol), 500 MG PO Q8HP, (Reported) Metoclopramide HCl (Metoclopramide Hydrochlor), 15 MG PO TID Scheduled PRN Baclofen (Baclofen), 10 MG PO Q8HP PRN for FOR MUSCLE SPASM, (Reported) Ibuprofen Micronized (Ibuprofen), 800 MG PO Q8HP PRN Durable Medical Equipment Blood Glucose Monitoring Suppl (Filecoinstyle Lite Blood Gluc), MIS XX TID, (DME) Isopropyl Alcohol (Alcohol Pads), % XX TIDWMEALS, (DME) Lancets (Freestyle Lancets), KIT XX TID, (DME) Discharge Statement: "Patient was advised to return to the ER or call 911 if any headaches, dizziness, shortness of breath, chest pain, abdominal pain, bleeding, fevers, or worsening of medical condition. Patient was counseled about treatment plan, medications, possible side effects, patientverbalized understanding. All questions were answered to the best of my ability. This discharge took greater then 30 minutes in planning, reviewing documentation, counseling the patient, and discussing with other team members." ASSESSMENT ASSESSMENT Assessment #Brain aneurysm #History of stroke, left-sided weakness #hyperlipidemia #Migraine -CT scan of head: No acute intracranial abnormality seen; Old right basal ganglia lacunar infarcts. -angio of the head and neck shows Suspected 3 mm aneurysm of the left M1/M2 bifurcation. Comparison with prior imaging is suggested; No large vessel occlusion. - neurology consult placed - aspirin 81 mg daily - atorvastatin 40 mg daily HS - labetalol 5 mg IV Q 2 PRN if SBP>150 - amlodipine 5 mg p.o. daily - Zofran 4 mg IV q.4 PRN - acetaminophen 650 mg p.o. q.6 PRN -follow lipid profile # Possible acute sinusitis - Flonase 50 mcg each nostril daily # Type 2 diabetes mellitus - A1c 13 - insulin Lantus 15 units HS - Moderate sliding scale insulin - Accu-Cheks - diabetes education # MARY due to VMN - IV fluid 125 mL/ hour once - avoid any nephrotoxic agents # Morbid obesity, BMI 34.7 - patient was counseled regarding lifestyle modification, need of exercise, healthy diet and weight loss over 11 minutes # essential hypertension Continue lisinopril Date of Service: Jul 18, 2025 Billing Provider: LYSSA VERGARA MD Common Visit Codes: 24517-CWX/OBS DISCH DAY >30min WOJCIECH NORIEGA RESIDENT Jul 18, 2025 12:14 LYSSA VERGARA MD Jul 25, 2025 18:18
[2025-07-18 13:00] VITALS: BP 115/66; PULSE 63; RESP 18; TEMP 97.5; O2SAT 100
== END 2025-07-18 14:39 | disposition home or self-care (01) | DRG 54 ==
LOC: ER 17:17 → OVERFLOW 07-16 00:28 → EAST 07-16 18:22
PROVIDERS: ADMIT Internal Medicine Geriatric Medicine; ATTEND Internal Medicine Geriatric Medicine
DX: G44.40 Drug-induced headache, not elsewhere classified, not intractable (principal); N17.0 Acute kidney failure with tubular necrosis; I67.1 Cerebral aneurysm, nonruptured; I69.354 Hemiplegia and hemiparesis following cerebral infarction affecting left non-dominant side; H53.47 Heteronymous bilateral field defects; J01.90 Acute sinusitis, unspecified; E11.9 Type 2 diabetes mellitus without complications; G43.909 Migraine, unspecified, not intractable, without status migrainosus; E66.01 Morbid (severe) obesity due to excess calories; Z20.822 Contact with and (suspected) exposure to COVID-19; Z68.34 Body mass index [BMI] 34.0-34.9, adult; H53.8 Other visual disturbances; E78.5 Hyperlipidemia, unspecified; H54.62 Unqualified visual loss, left eye, normal vision right eye; I10 Essential (primary) hypertension; T50.995A Adverse effect of other drugs, medicaments and biological substances, initial encounter; Z79.82 Long term (current) use of aspirin; Z79.899 Other long term (current) drug therapy; Z87.891 Personal history of nicotine dependence; Z88.0 Allergy status to penicillin; Y92.89 Other specified places as the place of occurrence of the external cause
CPT/HCPCS: 36415; 70450; 70496; 70498; 70540; 70551; 71045; 80048; 80053; 80061; 80307; 81001; 82010; 82962; 83036; 83605; 83735; 83880; 84484; 85025; 85610; 85652; 85730; 87426; 87804; 93005; 97110; 97163; G0378; J1100; J1815; J7060

== ENCOUNTER 2025-07-20 12:09 | Emergency (ER) | payer MEDICAID ==
[~2025-07-20] VITALS: Ht 175.3 cm; Wt 105.5 kg
[~2025-07-20 12:09] MED LIST: ALCOPAD62 XX; ASPI81CH74 PO; ATOR20TA50 PO; BACL10TA PO; BLOOMIS91 XX; CLOP75TA28 PO; CLOP75TA70 PO; INSU100I51 SC; INSU1INJ19 SC; LANC-347 XX; LISI-275 PO; METH-1181 PO; METO10TA4 PO
[2025-07-20 13:21] VITALS: TEMP 100.3
--- NOTE | 2025-07-20 13:35 | ED.PDOC ---
Musculoskeletal HPI Comments 54 year old male with PMHx CVA, HTN, DM, HLD presents to the ED with a chief compliant of RT arm swelling onset 2 days. Patient states he was discharged from [facility] on 07/18/25, was admitted due to CVA. Patient had IV on RT forearm, was removed prior to discharge. Since being discharged patient noticed redness, swelling, pain to Rt forearm and has also experienced sweats and chills. He had follow up appointment today at outpatient follow-up clinic, advised to come to ED to rule out DVT. No other symptoms or modifying factors present at this bill. Denies nausea vomiting diarrhea Denies shortness of breath chest pain Denies headache blurred vision Denies numbness/tingling Denies fevers Chief Complaint: Upper Extremity Time Seen by MD: 13:05 Primary Care Provider: NONE Reviewed Notes: Nurses Notes, Medications, Allergies Allergies: Coded Allergies: Penicillins (Verified Allergy, Unknown, 02/27/23) Home Meds Active Scripts Atorvastatin Calcium (ATORVASTATIN CALCIUM) 20 Mg Tab, 40 MG PO HS for 30 Days, #60 TAB Prov:WOJCIECH NORIEGA RESIDENT 07/18/25 Metoclopramide HCl (Metoclopramide Hydrochlor) 10 Mg Tab, 15 MG PO TID for 14 Days, #63 TAB Prov:WOJCIECH NORIEGA RESIDENT 07/18/25 Blood Glucose Monitoring Suppl (Freestyle Lite Blood Gluc) 1 Mis Mis, MIS XX TID, #1 Blood glucose using this machine, lancets and strips 3 times a day, before dosing insulin. Prov:WOJCIECH NORIEGA RESIDENT 07/18/25 Lancets (Freestyle Lancets) Lancets Mis, KIT XX TID, #90 Check blood glucose before dosing insulin Prov:WOJCIECH NORIEGA RESIDENT 07/18/25 Isopropyl Alcohol (Alcohol Pads) 70 % Pad, % XX TIDWMEALS, #100 2 Refills tid Prov:WOJCIECH NORIEGA RESIDENT 07/18/25 Insulin Aspart (Insulin Aspart Flexpen) 100 Unit/Ml Inj, 3 UNIT SC TIDWMEALS for 30 Days, #3 INJ If blood sugar < 60 - have 15-20 g of glucose (8 oz cranberry juice, orange juice, apple juice, small carton of milk) go to the ER/call 911 Blood sugar 61-130 - no insulin Blood sugar 131-160 - 2 units Blood sugar 161-200 - 3 units Blood sugar 201-250 - 6 units Blood sugar 251-300 - 9 units Blood sugar 301-350 - 12 units Blood sugar 351-400 - 15 units Prov:WOJCIECH NORIEGA RESIDENT 07/18/25 Insulin Glargine (Basaglar Kwikpen) 100 Unit/Ml Inj, 30 UNIT SC HS for 30 Days, #3 INJ Prov:WOJCIECH NORIEGA RESIDENT 07/18/25 Reported Medications Baclofen (Baclofen) 10 Mg Tab, 10 MG PO Q8HP PRN for FOR MUSCLE SPASM for 30 Days, MG 07/16/25 Methocarbamol (Methocarbamol) 500 Mg Tab, 500 MG PO Q8HP for 30 Days, MG 07/16/25 Clopidogrel Bisulfate (CLOPIDOGREL) 75 Mg Tab, 75 MG PO DAILY for 30 Days, MG 07/16/25 Clopidogrel Bisulfate (Plavix) 75 Mg Tab, 1 TAB PO DAILY, #90 TAB 1 Refill 07/16/25 Lisinopril (Lisinopril) 5 Mg Tab, 5 MG PO DAILY, TAB 07/16/25 Aspirin (Aspirin 81 Low Dose) 81 Mg Chw, 81 MG PO DAILY, TAB.CHEW 07/16/25 Information Source: Patient Mode of Arrival: Ambulatory Location: Right Extremity Location: Arm Timing: Days Prehospital treatment: None Severity: Moderate Able to Move Extremity: Yes Pain: Moderate Mechanism: Spontaneous Circumstances: Spontaneous Onset of Symptoms: Spontaneous Symptoms: Swelling, Pain, Erythema DVT Risk Factors: NONE Last Tetanus: UTD Associated signs and symptoms: Swelling Past Medical History PAST MEDICAL HISTORY: CVA, DM, High Lipids, HTN Surgical History: Denies all surgeries Family History Family History: Reviewed,noncontributory to illness Social History Smoker: Quit Greater Than 1 Year Alcohol: Denies ETOH Use Drugs: Denies Drug Use Lives In: Home All Other Systems: Reviewed and Negative (as per HPI) Physical Exam General Appearance: No Apparent Distress, Normal HEENT: Normal ENT Inspection, Pharynx Normal, TMs Normal Neck: Full Range of Motion, Non-Tender, Normal, Normal Inspection Respiratory: Chest Non-Tender, Lungs Clear, No Accessory Muscle Use, No Respiratory Distress, Normal Breath Sounds Cardiovascular: No Edema, No JVD, No Murmur, No Gallop, Normal Peripheral Pulses, Regular Rate/Rhythm Breast Exam: Deferred Gastrointestinal: No Organomegaly, Non Tender, No Pulsatile Mass, Normal Bowel Sounds, Soft Genitalia: Deferred Pelvic: Deferred Rectal: Deferred Extremities: No calf tenderness, Normal capillary refill Musculoskeletal : Location: Right Extremity Location: Forearm Apperance: Normal Neurologic: Alert, waste machine tender II-XII nml as Tested, No Motor Deficits, Normal Affect, Normal Mood, No Sensory Deficits Cerebellar Function: Normal Reflexes: Normal Skin: Dry, Normal Color, Warm Lymphatic: No Adenopathy Was a procedure done? Was a procedure done?: No X-Ray, Labs, Meds, VS Vital Signs Date Time Temp Pulse Resp B/P (MAP) Pulse Ox O2 Delivery O2 Flow Rate FiO2 07/20/25 13:21 106 16 98 Room Air 07/20/25 13:21 100.3 106 16 117/76 (90) 98 100.3 07/20/25 12:14 98.9 111 19 126/85 98 98.9 X-Ray, Labs, Meds, VS Comment 54 year old male with PMHx CVA, HTN, DM, HLD presents to the ED with a chief compliant of RT arm swelling onset 2 days. Patient arrives alert and oriented, ABC's intact, afebrile, vital signs stable, saturating well in room air Diagnostic imaging ordered by me and results interpreted by radiology : US RT upper DVT : Patient was given:_. Tolerated medications with no adverse reaction. Additional MDM Review of External, Non-ED records: External records reviewed. Discussion with independent historian (EMS, family) history obtained from the patient/parents (if applicable) at bedside Chronic conditions affecting care: DM, HTN, HLD, CVA Social determinants of health affecting care: None Consideration of admission (observation or admission): I considered escalation of care to admission for this patient, however given the reassuring workup, the patient is safe for outpatient management. On reevaluation, patient had symptomatic improvement. Patient is stable for discharge at this time. External notes reviewed. Test results and diagnostic imaging interpreted. All diagnostic findings, discharge care, education and instructions provided Follow-up with PCP in 2 to 3 days Patient verbalized understanding and agreed to treatment plan Vital signs stable, afebrile, no acute distress noted Patient ambulatory with strong steady gait Advised to return precautions for any new or worsening symptoms, return to ER immediately for re-evaluation Patient is aware that the purpose of this visit was for an acute medical emergency requiring emergent stabilization. Chronic conditions, including m alignancies have not been ruled out. Patient is instructed to follow up with PCP as directed and discharge instructions for continued care and workup. If unable to arrange follow-up, patient is to return to the emergency department for reassessment. Patient (parent or legal guardian if applicable) was given verbal and written discharge instructions and acknowledges understanding. 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 Electronically submitted by Aline Sewell ([email or web address]). I personally scribed for FELIBERTO LOREDO NP ([email or web address]) on 07/20/25 at 13:35. Electronically submitted by Aline Sewell ([email or web address]). FELIBERTO LOREDO NP Jul 20, 2025 13:35
--- NOTE | 2025-07-20 16:15 | DVH ---
RIGHT Upper Extremity Venous Duplex Clinical History: r/o dvt of the ac Comparison: None Findings: Duplex Doppler evaluation of the venous system of the RIGHT lower neck and upper extremity including color Doppler and spectral/pulsed waveform analysis was performed. The internal jugular vein demonstrates appropriate compressibility and waveform variability. The subclavian vein is patent on color Doppler evaluation without intraluminal thrombus and demonstrates waveform variability. The visualized portion of the brachiocephalic vein is patent on color Doppler evaluation without intraluminal thrombus and demonstrates waveform variability. The axillary vein demonstrates appropriate compressibility and waveform variability. The brachial veins demonstrate appropriate compressibility and patency on Doppler evaluation. Thrombus in basilic and cephalic vein are noted. Impression: No venous thrombus identified in the RIGHT upper extremity vessels evaluated above. Thrombus in basilic and cephalic vein are noted. If clinical concern/symptoms persist or worsen, short-interval follow-up study is suggested. A [facility]
[2025-07-20] MEDS ORDERED: IBUP-1455 PO (16:27)
[2025-07-20 16:31] VITALS: BP 122/86; PULSE 98; RESP 16; O2SAT 98
== END 2025-07-20 16:46 | disposition home or self-care (01) ==
LOC: ER 12:09
DX: I80.9 Phlebitis and thrombophlebitis of unspecified site (principal); I82.619 Acute embolism and thrombosis of superficial veins of unspecified upper extremity; I10 Essential (primary) hypertension; E11.9 Type 2 diabetes mellitus without complications; E78.5 Hyperlipidemia, unspecified; I63.9 Cerebral infarction, unspecified; Z79.82 Long term (current) use of aspirin; Z79.899 Other long term (current) drug therapy; Z86.73 Personal history of transient ischemic attack (TIA), and cerebral infarction without residual deficits; Z88.0 Allergy status to penicillin
CPT/HCPCS: 93971